=== PATIENT | female | born 1960 | race Caucasian/White ===

== ENCOUNTER → 2024-01-19 08:08 | Outpatient (REF) | payer BC, SELFPAY | LOC: WDC 08:08 | PROVIDERS: ATTENDING PHYSICIAN Obstetrics & Gynecology Gynecology; FAMILY PHYSICIAN Internal Medicine | DX: Z12.31 Encounter for screening mammogram for malignant neoplasm of breast (principal) | CPT/HCPCS: 77063; 77067 ==

== ENCOUNTER → 2024-01-26 08:42 | Outpatient (REF) | payer BC, SELFPAY | LOC: WDC 08:42 | PROVIDERS: ATTENDING PHYSICIAN Obstetrics & Gynecology Gynecology; FAMILY PHYSICIAN Internal Medicine | DX: R92.8 Other abnormal and inconclusive findings on diagnostic imaging of breast (principal) | CPT/HCPCS: 76642 ==

== ENCOUNTER → 2024-05-18 12:49 | Outpatient (REF) | payer BC, SELFPAY | LOC: RAD 12:49 | PROVIDERS: ATTENDING PHYSICIAN Obstetrics & Gynecology Gynecology; FAMILY PHYSICIAN Internal Medicine | DX: N95.0 Postmenopausal bleeding (principal) | CPT/HCPCS: 76830; 76856 ==

== ENCOUNTER → 2024-05-24 10:34 | Outpatient (REF) | payer BC, SELFPAY ==
[2024-05-24 12:54] LABS: ALT (SGPT) 24 U/L (0-35); AST (SGOT) 31 U/L (14-36); Albumin 4.8 g/dl (3.5-5.0); Alkaline Phosphatase 79 U/L (38-126); Blood Urea Nitrogen 15 mg/dl (7-17); Carbon Dioxide 26 mmol/L (22-30); Chloride 100 mmol/L (98-107); Glucose 84 mg/dl (70-99); Potassium 4.3 mmol/L (3.5-5.1); Sodium 138 mmol/L (135-145); Total Protein 7.6 g/dl (6.3-8.2); eGFR > 60.00
[2024-05-24 13:24] LABS: CA 125 28.8 U/mL (0-35)
== END ==
LOC: REG 10:34
PROVIDERS: ATTENDING PHYSICIAN Obstetrics & Gynecology Gynecology; FAMILY PHYSICIAN Internal Medicine
DX: N94.89 Other specified conditions associated with female genital organs and menstrual cycle (principal)
CPT/HCPCS: 36415; 80053; 86304

== ENCOUNTER → 2024-06-21 14:26 | Outpatient (REF) | payer BC, SELFPAY ==
[2024-06-21 16:10] LABS: Erythrocyte Sed Rate 20 mm/hour (0-20)
[2024-06-21 16:13] LABS: C-Reactive Protein < 5.00 mg/L (0.0-10.00)
[2024-06-21 16:29] LABS: Prolactin 8.7 ng/ml (3.0-18.6)
[2024-06-21 16:43] LABS: TSH 1.25 uIU/ml (0.47-4.68)
[2024-06-23 14:21] LABS: Rheumatoid Agglutinin Less Than 10 IU (<10 IU)
[2024-06-24 01:00] LABS: ANA, IgG Reflex to HEp-2 None Detected (None Detected)
== END ==
LOC: RAD 14:26
PROVIDERS: ATTENDING PHYSICIAN Internal Medicine
DX: M16.10 Unilateral primary osteoarthritis, unspecified hip (principal); L73.9 Follicular disorder, unspecified; R19.7 Diarrhea, unspecified
CPT/HCPCS: 36415; 73522; 84146; 84443; 85652; 86038; 86140; 86430

== ENCOUNTER → 2024-07-05 11:52 | Outpatient (REF) | payer BC, SELFPAY | LOC: MRI 3T 11:52 | PROVIDERS: ATTENDING PHYSICIAN Obstetrics & Gynecology Gynecology; FAMILY PHYSICIAN Internal Medicine | DX: N94.89 Other specified conditions associated with female genital organs and menstrual cycle (principal) | CPT/HCPCS: 72197; A9575 ==

== ENCOUNTER 2024-07-12 09:32 | Inpatient (IN) | payer BC, SELFPAY ==
[2024-07-10 12:24] VITALS: BP 150/84
[2024-07-10 13:44] VITALS: BMI 25.2
[2024-07-10 13:47] LABS: % Basophils 1.1 % (0-2); % Eosinophils 3.3 % (0-6); % Immature Granulocytes 0.3 % (0-0.5); % Lymphocytes 27.9 % (20.5-51.1); % Monocytes 8.8 % (1.7-9.3); % Neutrophils 58.6 % (42.2-75.2); Absolute Basophils 0.1 10^3/uL (0-0.2); Absolute Eosinophils 0.3 10^3/uL (0-0.7); Absolute Lymphocytes 2.2 10^3/uL (1.2-3.4); Absolute Monocytes 0.7 10^3/uL (0.1-0.6); Absolute Neutrophils 4.6 10^3/uL (1.4-6.5); Hematocrit 34.9 % (37.0-47.0); Hemoglobin 12.1 g/dL (12.0-16.0); Mean Corp Hgb Conc. 34.7 g/dL (33.0-37.0); Mean Corpuscular Hgb 30.6 pg (27.0-31.0); Mean Corpuscular Volume 88.4 fL (81.0-99.0); Mean Platelet Volume 8.8 fL (7.4-10.4); Nucleated Red Blood Cells % 0 %; Platelet Count 374 10^3/uL (130-400); Red Blood Cell Count 3.95 10^6/uL (4.20-5.40); Red Cell Dist. Width 12.5 % (11.5-14.5); White Blood Cell Count 7.9 10^3/uL (4.8-10.8)
[2024-07-10 13:59] LABS: ALT (SGPT) 19 U/L (0-35); AST (SGOT) 29 U/L (14-36); Albumin 4.3 g/dl (3.5-5.0); Alkaline Phosphatase 69 U/L (38-126); Blood Urea Nitrogen 13 mg/dl (7-17); Calcium 9.7 mg/dl (8.4-10.2); Carbon Dioxide 27 mmol/L (22-30); Chloride 104 mmol/L (98-107); Estimated Creatinine Clearance 77 ml/min; Glucose 86 mg/dl (70-99); LDH 163 U/L (120-246); Sodium 135 mmol/L (135-145); Total Bilirubin 0.7 mg/dl (0.2-1.3); Total Protein 6.7 g/dl (6.3-8.2); eGFR > 60.00
[2024-07-10 14:00] VITALS: BP 119/72
--- NOTE | 2024-07-10 14:30 | ED.GENMED ---
History of Present Illness
General
Chief Complaint: Abdominal Symptoms
Source: patient
Time Seen by Provider: 07/10/24 12:59
History of Present Illness
History of Present Illness:
64-year-old female with past medical history of migraines and anxiety presenting to the emergency department for evaluation of lower abdominal distention and a fullness sensation describing no pain but states it feels as if she is . Patient
had an MRI done last week which showed a significant mass on her left ovary concerning for neoplasm. Patient has a appointment scheduled with Dr. Mk Mar in 8 days for further evaluation but due to a change in her symptoms contacted him today
and it was recommended she come to the ER for further evaluation. Patient notes that over the last few months she has been experiencing some skin changes, increased hair growth, blotchiness on her skin and fullness sensation to the breast and
nipples. She had an ultrasound done about 8 weeks ago which showed the suspected mass, had a uterine biopsy which was negative and then the ultrasound done which showed concerning findings. Patient denies any urinary symptoms, bowel changes,
change in oral intake or any other concerns presently.
Past History
Past History
ED Past Medical History: Other (Endometriosis) and Other (migraines)
ED Past Surgical History: Appendectomy and Gynecological (Laparoscopic left oophorectomy)
Social History
Tobacco: Non-smoker
Alcohol: None
Drug: None
Personal:
Living: with family
Review of Systems
Review of Systems
All Other Systems: ROS reviewed and negative except as documented in HPI and ROS
Phy Exam
Physical Exam
Physical Exam:
GENERAL: Alert , in no apparent distress
EYE: clear conjunctiva b/l
HEAD: NCAT
ENT: mmm.
CARDIAC: Regular rate and rhythm .
LUNGS: Clear breath sounds bilaterally, no acute respiratory distress, no wheezes/rales/rhonchi
ABDOMEN: Soft, distended with some mild tenderness in the left lower part of the abdomen, no r/g, no cvat, no large volume ascites or fluid wave
NEUROLOGICAL: Alert and oriented
SKIN: Warm and dry, skin intact.
MUSCULOSKELETAL: well perfused.
PSYCH: Normal and appropriate interaction.
Scores
Heart Failure Risk
Heart Failure Risk Score: Not Applicable
Heart Score for Chest Pain Patients
STEMI patient?: Not applicable
Withdrawal Assessment of Alcohol
Withdrawal Assessment Completed?: Not applicable
Course
Orders/Labs/Results
Orders:
Orders
07/10/24 Lunch
Regular
At Your Request: Full Participation
07/10/24 13:30
CT Chest/abd/pel W Iv Cont Urgent
Reason For Exam: large ovarian mass, worsening pain
07/10/24 13:36
CA 125 Urgent
CEA Urgent
Comment: ADD ON
Complete Blood Count/With Diff Urgent
Comprehensive Metabolic Panel Urgent
Lactate Dehydrogenase [LDH] Urgent
07/10/24 13:47
Add On- LAB Urgent
Tests Added?: CEA
07/10/24 16:06
TERMITE CONTROL TECHNICIAN Oncology Consult Routine
Consulting Provider: Mk Mar
Was physician already notified: Yes
Reason for consult: ovarian tumor
07/10/24 17:07
Tramadol HCl [Ultram] 50 mg PO Q6HPRN PRN
07/10/24 17:10
Ketorolac [Toradol] 15 mg IV Q6HPRN PRN
Morphine Sulfate 2 mg IV Q6HPRN PRN
07/10/24 17:13
Admit/Transfer Patient As Directed
Co-Sign Provider:
Level of Care: Observation services
Assign to:: Medical/Surgical
Physician / Group: Kevon Rain
Diagnosis: Abd discomfort/pain possibly d/t malignancy vs constipation
PRN Pain Medication Management As Directed
May give lesser potent ordered pain med per pt: Yes
preference::
Protocol:: Medication orders for pain may be administered in a
manner that supports deferring to patient preference
when the pt is:
- Requesting an ordered lesser potent pain medication.
Least to most potent pain medications are defined
as: acetaminophen < NSAID < tramadol < opioids
(morphine, oxycodone, hydromorphone).
- Requesting a lesser dose of the same medication IF
ORDERED.
- Requesting a less intrusive route of administration
if both routes are prescribed by the provider (PO <
IV).
07/10/24 17:15
Code Status As Directed
Resuscitation Status: Full Code
07/10/24 17:19
Tramadol HCl [Ultram] 50 mg PO Q6HPRN PRN
07/10/24 18:00
Pantoprazole [Protonix] 40 mg PO DAILY
07/10/24 19:52
Acetaminophen [Tylenol] 650 mg PO Q4HPRN PRN
Bisacodyl [Dulcolax] 10 mg RECTAL [id number] PRN
Polyethylene Glycol Powder [Miralax] 17 grams PO DAILYPRN PRN
07/10/24 19:52
Activity As Directed
Activity Level: With Assistance
Pneumatic Compression Sleeves As Directed
Type: Knee high
Vital Signs As Directed
Frequency: Per unit guidelines
DX Deep Vein Thrombosis Video Routine
07/10/24 20:00
Docusate W/Senna [Senokot-S] 1 tablet PO BID
07/10/24 22:00
Aspirin Low Dose EC [Aspir Low (Enteric Coated)] 81 mg PO HS
07/11/24 05:56
Basic Metabolic Panel IN AM
Complete Blood Count/No Diff IN AM
Magnesium IN AM
07/11/24 08:00
Calcium Carbonate/Vitamin D3 [Oscal 500 + D] 500 mg PO DAILY
Paroxetine [Paxil] 20 mg PO DAILY
Rosuvastatin Calcium [Crestor] 10 mg PO DAILY
07/12/24 06:00
Basic Metabolic Panel IN AM
Complete Blood Count/No Diff IN AM
Magnesium IN AM
07/13/24 06:00
Basic Metabolic Panel IN AM
Complete Blood Count/No Diff IN AM
Magnesium IN AM
07/14/24 06:00
Basic Metabolic Panel IN AM
Complete Blood Count/No Diff IN AM
Magnesium IN AM
07/15/24 06:00
Basic Metabolic Panel IN AM
Complete Blood Count/No Diff IN AM
Magnesium IN AM
07/16/24 06:00
Basic Metabolic Panel IN AM
Complete Blood Count/No Diff IN AM
Magnesium IN AM
07/17/24 06:00
Basic Metabolic Panel IN AM
Complete Blood Count/No Diff IN AM
Magnesium IN AM
Abnormal Lab Results
07/10/24
13:36
RBC 3.95 L 10^6/uL
(4.20-5.40)
Hct 34.9 L %
(37.0-47.0)
Absolute Monos (auto) 0.7 H 10^3/uL
(0.1-0.6)
07/10/24 13:36
07/10/24 13:36
Vital Signs
Initial and Last Documented VS:
Initial Vital Signs
Temp Pulse Resp BP Pulse Ox
97.5 F 81 18 150/84 100
07/10/24 12:24 07/10/24 12:24 07/10/24 12:24 07/10/24 12:24 07/10/24 12:24
Last Documented Vital Signs
Temp Pulse Resp BP Pulse Ox
98 F 71 16 123/76 98
07/10/24 22:51 07/10/24 22:51 07/10/24 22:51 07/10/24 22:51 07/10/24 22:51
MDM/Problems Addressed
Differential Diagnosis Includes:
Ovarian malignancy, ascites, torsion
MDM/Problems Addressed:
64-year-old female presenting to the emergency department for evaluation of worsening abdominal distention and fullness after she had an MRI done a few days ago which had concerning findings for large left ovarian mass/malignancy. Patient stating
she is not in much pain but describes sensation of feeling with worsening abdominal distention. She contacted her TERMITE CONTROL TECHNICIAN oncologist who recommended patient come to the ER for further evaluation. I reviewed patient's MRI report. Will check
labs as well as tumor markers including CEA and CA125. Will contact patient's TERMITE CONTROL TECHNICIAN oncologist, Dr. Mar to help with disposition planning.
*Radiology
Radiology exam reviewed: radiology read reviewed
*Pulse Oximetry
Patient hypoxic: no
*Critical Care Note
Total Time (30-74mins, 75-104mins- exclusive of procedures): Not Applicable
Data Reviewed
Review of Other/Old Records Reveals: Records and Radiology Studies
Source: patient and records
Patient Management
Discussion with other providers: Body Art Technician
Escalation/DeEscalation of care consider admission/obs:
Dr. Mar requesting CT chest/abd/pelvis be performed. Anticipate admission pending further tests
ED Attending Note
-
Portions of this chart may have been created with voice recognition software.� Occasional wrong word or��sound alike� substitutions may have occurred due to the inherent limitations of voice recognition software.
Discharge Plan
Departure
Patient Disposition: Admit
Date of Disposition: 07/10/24
Time of Disposition: 15:12
Presentation/result/management discussed w/ accepting MD/DO: Hospitalist
Discharge Problem:
Ovarian mass, left
Interventions
Interventions:
*Risk Screen - Suicide Last Done: 07/10/24 12:24
*General Assessment Last Done: 07/10/24 12:24
*Neglect/Abuse Screening Last Done: 07/10/24 12:24
ED- Fall Risk Assessment Last Done: 07/10/24 13:44
*ED COVID-19 Vaccine History Last Done: 07/10/24 13:44
*Nursing Disposition Last Done: 07/10/24 20:43
PS-Nwfjaz-Nqqlyrxpqr Assessment Last Done: 07/10/24 13:44
Discharge Date and Time
Discharge Date/Time: 07/10/24 20:43
--- NOTE | 2024-07-10 15:29 | HPS.HSE ---
Family Physician
-
Family Physician: Kelvin Pascual
Chief Complaint
-
Abdomen pain
History of Present Illness
64 female history of tension headaches due to neck pain anxiety presents for evaluation abdomen pain acute worsening last 24 hours. Patient was recently found to have a left ovarian mass on MRI. Discussed worsening of abdominal discomfort
distention with her physical meteorologist who recommended patient seek further evaluation treatment in ED. Vital signs stable labs unremarkable CT abdomen pelvis noted known left ovarian mass, otherwise no acute inflammatory process, stable trace pelvic
ascites, no focal collection/abscess. Constipation with mild to moderate colonic fecal burden was noted, patient does endorse a history of constipation for years but notes that her bowel movements recently have been regular. Denies nausea vomiting
diarrhea fevers chills shortness of breath. Endorses left hip pain planned for outpatient hip replacement.
Medical History
Past Medical History
Past Medical History: Reports Other (as above)
Past Surgical History: Reports Other (as above)
Social History
Tobacco: Non-smoker
Alcohol: None
Drug: None
Personal:
Living: With Family
Family History
Family History: Not pertinent (reviewed)
Allergies / Home Medications
Allergies reflects when Allergies were last updated in [facility].
Home Medications with original date entered in [facility]
Allergy/Medication List:
Allergies
Allergy/AdvReac Type Severity Reaction Status Date / Time
levofloxacin [From Levaquin] Allergy chest and Verified 06/07/19 10:08
leg pain
Penicillins Allergy fever and Verified 06/07/19 10:08
rash
codeine AdvReac nasuea Verified 06/07/19 10:08
Home Medications
kpywccgk-ehh-kwbnt acid 0.4 mg-lycopene 300 mcg-lutein 250 mcg tablet (Centrum Silver) 1 ea PO DAILY 01/05/18
paroxetine HCl 20 mg tablet (Paxil) 20 mg PO DAILY 01/05/18
calcium carbonate 600 mg-vitamin D3 20 mcg (800 unit) chewable tablet (Caltrate 600 plus D) 1 ea PO DAILY 06/07/19
aspirin 81 mg tablet,delayed release 81 mg PO HS 07/10/24
naproxen sodium 220 mg tablet (Aleve) 440 mg PO BIDPRN PRN mild pain 07/10/24
rosuvastatin 10 mg tablet 10 mg PO DAILY 07/10/24
Review of Systems
-
A 12 point ROS was completed and negative except as noted: Yes
Constitutional: Reports Sleep Disturbance (as below)
Physical Exam
Vital Signs
Vital Signs
Temp Pulse Resp BP Pulse Ox
97.5 F 81 18 119/72 95
07/10/24 12:24 07/10/24 12:24 07/10/24 12:24 07/10/24 14:00 07/10/24 14:01
Physical Exam
General: Other (as below)
Laboratory Results
-
07/10/24 13:36
07/10/24 13:36
Laboratory Results
Total Bilirubin 0.7 mg/dl (0.2-1.3) 07/10/24 13:36
AST 29 U/L (14-36) 07/10/24 13:36
ALT 19 U/L (0-35) 07/10/24 13:36
Alkaline Phosphatase 69 U/L (38-126) 07/10/24 13:36
Impression/Plan
-
ROS
General: Denies fever chills night sweats unexpected weight loss
Neuro: Denies seizure shaking loss of consciousness dizziness vertigo
Psych: denies depression hallucinations confusion manic episodes
Endocrine: Denies polyuria polydipsia polyphagia heat/cold intolerance
HEENT: Denies blindness visual disturbances epistaxis
Pulmonary: denies coughing hemoptysis sneezing sob dyspnea on exertion
Cardiovascular: denies chest pain palpitations leg swelling
Hematology: denies signs symptoms of anemia easy bruising/bleeding
Gastrointestinal: Reports abdomen discomfort distention denies nausea vomiting diarrhea constipation hematemesis hematochezia melena
Genito-Urinary: denies retention incontinence dysuria
Musculoskeletal: denies joint pain weakness
Dermatology: denies rash laceration bruising
Physical Exam
General: No pallor, cyanosis, or jaundice.
HEENT: Throat clear. PERRLA Normocephalic atraumatic
NECK: Supple. No JVD Carotid Bruits
RESPIRATORY: Lungs clear to auscultation. No crackles wheezes stridor
CVS: S1, S2 normal. RRR. No murmur, rub or gallop.
ABDOMEN: Soft, distended mild tenderness. Bowel sound present
EXTREMITIES: No peripheral cyanosis or edema.
SHEET METAL WORKER: AOx3. No focal deficits.
IMPRESSION:
64 female history of tension headaches due to neck pain anxiety presents for evaluation abdomen pain acute worsening last 24 hours. Patient was recently found to have a left ovarian mass on MRI. Discussed worsening of abdominal discomfort
distention with her physical meteorologist who recommended patient seek further evaluation treatment in ED. Vital signs stable labs unremarkable CT abdomen pelvis noted known left ovarian mass, otherwise no acute inflammatory process, stable trace pelvic
ascites, no focal collection/abscess. Constipation with mild to moderate colonic fecal burden was noted, patient does endorse a history of constipation for years but notes that her bowel movements recently have been regular. Denies nausea vomiting
diarrhea fevers chills shortness of breath. Endorses left hip pain planned for outpatient hip replacement.
PLAN:
#Abdominal discomfort pain unclear etiology
#Left ovarian mass
#Discomfort possibly due to constipation, regular bowel movements may be due to overflow incontinence
Observation
Regulated Program Manager consult
Pain control tramadol moderate-severe pain, morphine for severe breakthrough pain
Colace senna hold for diarrhea
#Anxiety
Continue home paroxetine
DVT prophylaxis SCDs
GI prophylaxis Protonix
Meds reconciled and resume as appropriate
Full code
I spent a total of 75 minutes with the patient or on the floor. More than 50% of this time involved counseling and coordination of care.
[2024-07-10 15:48] LABS: CEA 0.64 ng/ml
[2024-07-10] MEDS: ULTRAM 50 MG PO (17:27)
--- NOTE | 2024-07-10 19:55 | PTCARENOTE ---
Received pt from ED via stretcher. Pt ambulated to bed independently. AAOx3. Pt complained of moderate to severe pain in LL abd, see MAR. Assessed and oriented to room. Pt verbalized understanding of call bates. Call bates within close reach. Will
continue to monitor.
[2024-07-10 20:01] VITALS: BP 132/71; BMI 26.0
[2024-07-10] MEDS: MIRALAX 17 GRAMS PO (21:41)
[2024-07-10] MEDS: ASPIR LOW (ENTERIC COATED) 81 MG PO (21:42)
[2024-07-10] MEDS: PROTONIX 40 MG PO (21:42)
[2024-07-10] MEDS: SENOKOT-S 1 TABLET PO (21:42)
[2024-07-10] MEDS: MORPHINE SULFATE 2 MG IV (22:02)
[2024-07-10 22:51] VITALS: BP 123/76
[2024-07-11] MEDS: ULTRAM 50 MG PO (06:31)
[2024-07-11 06:44] LABS: Hematocrit 36.8 % (37.0-47.0); Hemoglobin 12.4 g/dL (12.0-16.0); Mean Corp Hgb Conc. 33.7 g/dL (33.0-37.0); Mean Corpuscular Hgb 30.9 pg (27.0-31.0); Mean Corpuscular Volume 91.8 fL (81.0-99.0); Mean Platelet Volume 9.1 fL (7.4-10.4); Platelet Count 360 10^3/uL (130-400); Red Blood Cell Count 4.01 10^6/uL (4.20-5.40); Red Cell Dist. Width 12.4 % (11.5-14.5); White Blood Cell Count 7.3 10^3/uL (4.8-10.8)
[2024-07-11 07:38] LABS: Blood Urea Nitrogen 13 mg/dl (7-17); Calcium 8.9 mg/dl (8.4-10.2); Carbon Dioxide 26 mmol/L (22-30); Chloride 104 mmol/L (98-107); Estimated Creatinine Clearance 65 ml/min; Glucose 88 mg/dl (70-99); Magnesium 2.3 mg/dl (1.6-2.3); Potassium 4.2 mmol/L (3.5-5.1); Sodium 137 mmol/L (135-145); eGFR > 60.00
[2024-07-11 07:56] VITALS: BP 114/71
--- NOTE | 2024-07-11 08:38 | CON.ONC ---
Impression
Impression
Acute abdominal pain
Acute on chronic constipation
Left ovarian mass concerning for neoplasm
Replacement of left ovary with large complex solid/cystic pelvic mass measuring 10cm x9cm x9cm
Endometrioma
Trace pelvic ascites
Osteoarthritis of left hip
Plan
Plan
Metalizer Field Operation consult
Await recommendations regarding biopsy/plan of care
Pain management
CA 125 pending
Bowel regimen
Supportive care
Patient History
History of Present Illness
Mala Lee is a 64 year old female who presented to the ER 07/10 with complaints of lower abdominal distention with sensation of fullness. She denies pain but stated she 'feels '. She had an MRI performed outpatient which showed a large
left ovarian mass concerning for neoplasm. She has an appointment for consultation with Dr. Mk Mar on 07/18/24. She contacted Dr. Mar with her acute symptoms and it was recommended that she proceed with ER evaluation. Outpatient uterine
biopsy was negative. Other reported symptoms include: skin changes described as 'blotchy' with increased hair growth and a sensation of fullness to breasts/nipples. She denies weight loss or appetite changes. She admits to chronic constipation. She
is up to date on mammogram as of 01/26/24 which was benign.
Past-Medical/Surgical History
Tension headaches/migraines
Anxiety
Osteoarthritis of Left hip
Patient Medication
�Medication �Instructions �Recorded �Confirmed �Last Taken �Type
pdlanuba-yyu-lajlr acid 0.4 1 ea PO DAILY 01/05/18 07/10/24 Unknown History
mg-lycopene 300 mcg-lutein 250 mcg
tablet (Centrum Silver)
paroxetine HCl 20 mg tablet (Paxil) 20 mg PO DAILY 01/05/18 07/10/24 07/10/24 History
calcium carbonate 600 mg-vitamin 1 ea PO DAILY 06/07/19 07/10/24 Unknown History
D3 20 mcg (800 unit) chewable
tablet (Caltrate 600 plus D)
aspirin 81 mg tablet,delayed 81 mg PO HS 07/10/24 07/10/24 Unknown History
release
naproxen sodium 220 mg tablet 440 mg PO BIDPRN PRN mild pain 07/10/24 07/10/24 07/09/24 History
(Aleve)
rosuvastatin 10 mg tablet 10 mg PO DAILY 07/10/24 07/10/24 07/10/24 History
Active Medications
Generic Name Dose Route Start Last Admin
Trade Name Freq PRN Reason Stop Dose Admin
Acetaminophen 650 mg 07/10/24 19:52
Acetaminophen 325 Mg Tablet PO 08/07/24 19:51
Q4HPRN PRN
mild pain/PAVON/temp> 100.4F
Aspirin 81 mg 07/10/24 22:00 07/10/24 21:42
Aspirin 81 Mg (Enteric Coated) Tablet PO 08/07/24 21:59 81 mg
HS MARJ Administration
Bisacodyl 10 mg 07/10/24 19:52
Bisacodyl 10 Mg Rectal Suppository RECTAL 08/07/24 19:51
[id number] PRN
constipation
Calcium/Vitamin D 500 mg 07/11/24 08:00
Calcium Carbonate 500 Mg/Vitamin D 5 Mcg (200 Units) Tablet PO 08/08/24 07:59
DAILY MARJ
Morphine Sulfate 2 mg 07/10/24 17:10 07/10/24 22:02
Morphine 2 Mg/Ml Syringe IV 07/24/24 17:09 2 mg
Q6HPRN PRN Administration
severe breakthrough pain
Pantoprazole Sodium 40 mg 07/10/24 18:00 07/10/24 21:42
Pantoprazole 40 Mg Delayed Release Tablet PO 08/07/24 17:59 40 mg
DAILY MARJ Administration
Paroxetine HCl 20 mg 07/11/24 08:00
Paroxetine 20 Mg Tablet PO 08/08/24 07:59
DAILY MARJ
Polyethylene Glycol 17 grams 07/10/24 19:52 07/10/24 21:41
Polyethylene Glycol Powder 17 Grams Packet PO 08/07/24 19:51 17 grams
DAILYPRN PRN Administration
constipation
Rosuvastatin Calcium 10 mg 07/11/24 08:00
Rosuvastatin (Crestor) 10 Mg Tablet PO 08/08/24 07:59
DAILY MARJ
Senna/Docusate Sodium 1 tablet 07/10/24 20:00 07/10/24 21:42
Docusate W/Senna (Kasey-Colace) Tablet PO 08/07/24 19:59 1 tablet
BID MARJ Administration
Tramadol HCl 50 mg 07/10/24 17:19 07/11/24 06:31
Tramadol Hcl 50 Mg Tablet PO 08/07/24 17:18 50 mg
Q6HPRN PRN Administration
moderate severe pain
Physical Exam
Labs
Lab Results
WBC 7.3 10^3/uL (4.8-10.8) 07/11/24 05:56
RBC 4.01 10^6/uL (4.20-5.40) L 07/11/24 05:56
Hgb 12.4 g/dL (12.0-16.0) 07/11/24 05:56
Hct 36.8 % (37.0-47.0) L 07/11/24 05:56
MCV 91.8 fL (81.0-99.0) 07/11/24 05:56
MCH 30.9 pg (27.0-31.0) 07/11/24 05:56
MCHC 33.7 g/dL (33.0-37.0) 07/11/24 05:56
RDW 12.4 % (11.5-14.5) 07/11/24 05:56
Plt Count 360 10^3/uL (130-400) 07/11/24 05:56
MPV 9.1 fL (7.4-10.4) 07/11/24 05:56
Abs Immat Gran (auto) 0.0 10^3/uL (0-0.05) 07/10/24 13:36
Absolute Neuts (auto) 4.6 10^3/uL (1.4-6.5) 07/10/24 13:36
Absolute Lymphs (auto) 2.2 10^3/uL (1.2-3.4) 07/10/24 13:36
Absolute Monos (auto) 0.7 10^3/uL (0.1-0.6) H 07/10/24 13:36
Absolute Eos (auto) 0.3 10^3/uL (0-0.7) 07/10/24 13:36
Absolute Basos (auto) 0.1 10^3/uL (0-0.2) 07/10/24 13:36
Immature Gran % 0.3 % (0-0.5) 07/10/24 13:36
Neutrophils % 58.6 % (42.2-75.2) 07/10/24 13:36
Lymphocytes % 27.9 % (20.5-51.1) 07/10/24 13:36
Monocytes % 8.8 % (1.7-9.3) 07/10/24 13:36
Eosinophils % 3.3 % (0-6) 07/10/24 13:36
Basophils % 1.1 % (0-2) 07/10/24 13:36
Creatinine 0.7 mg/dL (0.6-1.0) 07/11/24 05:56
Vital Signs
Vital Signs
Temp Pulse Resp BP Pulse Ox
98.2 F 71 17 114/71 97
07/11/24 07:56 07/11/24 07:56 07/11/24 07:56 07/11/24 07:56 07/11/24 07:56
07/05/24 Pelvis MRI: Replacement of the left ovary with a large complex heterogeneously enhancing mass as described, highly suspicious for malignant cystic neoplasm such as serous or mucinous cystadenocarcinoma. There appears to be a small internal
component of an endometrioma, suggesting possibility of endometrioid carcinoma of the ovary as well.Mild endometrial thickening with mild fluid distention. Findings may reflect endometrial hyperplasia.
07/10/24 CT c/a/p: No acute inflammatory process within the abdomen or pelvis. No significant change in a large complex solid/cystic pelvic mass, previously described to be related to left ovary on MRI examination performed 5 days previous.Stable
trace pelvic ascites. No upper abdominal ascites or focal collection/abscess.Constipation with mild to moderate colonic fecal burden. No grossly distended bowel loops.No obstructive uropathy.
[2024-07-11] MEDS: OSCAL 500 + D 500 MG PO (08:50)
[2024-07-11] MEDS: CRESTOR 10 MG PO (08:50)
[2024-07-11] MEDS: SENOKOT-S 1 TABLET PO ×2 (08:51→21:34)
[2024-07-11] MEDS: PROTONIX 40 MG PO (08:51)
[2024-07-11] MEDS: PAXIL 20 MG PO (08:51)
--- NOTE | 2024-07-11 08:56 | W.PN.HOSP.TC ---
Addendum entered and electronically signed by Joce Bloom MD 07/12/24 07:52:
EKG reviewed and it is NSR and unremarkable. Ok to proceed to surgery.
Addendum entered and electronically signed by Joce Bloom MD 07/11/24 14:43:
Patient has no contraindication for surgery therefore is okay to proceed. She has mild perioperative risk of complications. She does not have any acute [place], decompensated heart failure, severe valvulopathy, severe symptomatic arrhythmias. Will
obtain a twelve-lead EKG for completeness preop.
Original Note:
Today's Communication/Plan
-
Plan for ENTERTAINMENT AGENT surgery tomorrow.
Assessment / Plan
Assessment / Plan
Physical exam:
General: Acutely ill. Nontoxic
HEENT: Normocephalic, Atraumatic and Moist Mucous Membranes
Respiratory: Clear to Auscultation; Negative Wheezes, Rales or Rhonchi
Cardiac: Regular Rhythm and S1/S2
GI: Soft, Tender and Nondistended
Musculoskeletal: No Clubbing, No Cyanosis and No Edema
Neuro: Awake, Alert and Oriented, no neuro-deficits
Psych: Calm
A/P:
Abdominal pain likely related to complex left pelvic mass, suspicion for ovarian malignancy:
Continue pain control
Appreciated ENTERTAINMENT AGENT oncology eval
CA-125 pending
CEA antigen 0.64
Plan for robotic assisted laparoscopic hysterectomy with LSO tomorrow
Discussed with at bedside
Constipation:
Continue bowel regimen
Depression and anxiety
Continue home paroxetine
Hyperlipidemia:
Continue statins, rosuvastatin 10 mg p.o. daily
DVT prophylaxis:
SCDs
CODE STATUS:
Full code
Anticipated Discharge: 24 - 48 hours
Subjective/Interval History
-
Date of Service: July 11, 2024
Patient still have abdominal pain on and off. Tramadol did not help much. Morphine helped more. Had bowel movement yesterday. Afebrile
Objective Data
-
Labs:
Laboratory Results
07/11/24
05:56
WBC 7.3
Hgb 12.4
Hct 36.8 L
Plt Count 360
Sodium 137
Potassium 4.2
Chloride 104
Carbon Dioxide 26
BUN 13
Creatinine 0.7
Glucose 88
Calcium 8.9
Vital Signs:
Vital Signs
Temp Pulse Resp BP Pulse Ox
98.2 F 71 17 114/71 97
07/11/24 07:56 07/11/24 07:56 07/11/24 07:56 07/11/24 07:56 07/11/24 07:56
I&O
07/10/24 07/11/24 07/12/24
06:59 06:59 06:59
Intake Total 480 / 480
Balance 480 / 480
[2024-07-11] MEDS: MORPHINE SULFATE 2 MG IV ×3 (10:41→23:08)
--- NOTE | 2024-07-11 12:48 | W.PN.GYNONC ---
Today's Communication
-
surgery scheduled for tomorrow 07/12
Impression / Plan
-
complex left pelvic mass-10x8x8 cm suspicious for cystic neoplasm of the left ovary- case discussed with Dr Mar
Plan - discussed results with patient and discussed need for surgical removal of mass and hysterectomy to determine pathology of the mass. Explained a robotic assisted total laparoscopic hysterectomy with LSO and possible staging with omentectomy
risks discussed and questions answered Dr Mar also to see patient and discuss surgery Will plan surgery for 07/12.
Subjective / Interval History
-
64 yr old white female admitted yesterday for abdominal pain and bloating. The pain started on 07/07 and was off and on and controlled with Aleve Yesterday the pain increased and associated with bloating that she could feel up and under her ribs.
She states that bloating is not as bad but is still having the pain but was controlled with the Morphine she was given last night. Prior to her admission she was being worked up for vaginal bleeding that started in March of 2024 and during that work
up a left ovarian mass was found. Ultrasound showed the mass as 5 to 6 cm and MRI from last week shows mass to be [address] scan confirms ovarian mass. She also had an endometrial bx that shows proliferative endometrium.
PMH
infertility and endometriosis
left hip osteoarthritis
past surgical hx-
2004-robotic RSO for endometrioma
2018- appy
Objective Data
-
Lab Results:
07/11/24 05:56
07/11/24 05:56
Physical Exam
Vital Signs / I&O
Vitals
Temp Pulse Resp BP Pulse Ox
98.2 F 71 17 114/71 97
07/11/24 07:56 07/11/24 07:56 07/11/24 07:56 07/11/24 07:56 07/11/24 07:56
I&O
07/09/24 07/10/24 07/11/24 08/13/24
06:59 06:59 06:59 06:59
Intake Total 480 / 480
Balance 480 / 480
Physical Exam
VSS
afebrile
abdominal- soft, LLQ tenderness fullness to 2 cm below the umbilicus negative rebound tenderness
General: Comfortable
Cardiac: Regular Rhythm
Musculoskeletal: No Edema
Neuro: AO x 3
Data Reviewed
-
CT Scan: Discussed with Physician
MRI: Discussed with Physician
[2024-07-11 15:13] VITALS: BP 113/70
--- NOTE | 2024-07-11 15:48 | W.CON.GYNONC ---
Consultation
-
Date/Time Consultation Requested: 07/11/2024
Date/Time Consultation Performed: 07/11/2024
Performing Provider: Mk Mar
Reason for Consultation: Pelvic mass
Chief Complaint
-
abdominal pain/bloating
History of Present Illness
64 G0 white female menopausal for 13 years presents for evaluation abdomen pain acute worsening last 24 hours. patient reports she experienced vaginal bleeding back in 2023 and reported this to her. At the same time she has had 6 months of
increased hair growth, acne like changes on her face, and also increased libido. Specifically she mentions there are blemishes on her scalp first noticed in November, subsequently fibrolamellar whole face. She also reports unexpected weight gain in
the first 6 months of the year, she has had hair growth twice is normally superficial, there are rare growth as well as hair on her breasts and her on her breasts.Dr Cordoba saw her and pap done was normal. she came back for endometrial biopsy
which showed proliferative endometrium (abnormal for this age group) . US pelvis done showed Uterus: 7.6 x 4.5 x 6.4 cm. Endometrium: Endometrium measures 8.6 mm, containing multiple small cystic structures. Right ovary: Surgically absent. Left
ovary: There is a large structure in the left adnexa measuring 6.9 x 6.7 x 8.6 cm, adjacent to and contiguous with the uterine margin. Presumably an enlarged left ovary. There are a few follicles/cystic structures measuring up to 1.8 cm. There is
also a dominant lesion measuring 5.9 x 5.7 x 5.3 cm with homogeneous low-level internal echoes, suspicious for endometrioma. She was asked to do a MRI which took a while to schedule, eventually done last week UTERUS:
Orientation: Retroverted. Masses: None. Endometrium: 6 mm. Mildly distended with fluid. Junctional zone: Unremarkable. Cervix: There are incidental nabothian cysts present. RIGHT OVARY: Surgically absent. LEFT OVARY: Replaced by a large
heterogeneous mass measuring approximately 10.1 x 8.1 x 8.6 cm. The mass contains a large simple cystic component along the right aspect, whereas the left aspect of the mass is characterized by markedly heterogeneous and enhancing soft tissue
component measuring up to 6.4 x 5.7 x 2.1 cm. Along the left lateral aspect of this heterogeneous area there is a nonenhancing component which demonstrates T1 hyperintense signal with T2 shading, measuring up to 2.1 cm.
She called me through answering service yesterday and Discussed worsening of abdominal discomfort distention and I recommended patient seek further evaluation treatment in ED.
She saw me back in 2005 for abnormal bleeding but chose to have surveillance with no intervention.
in ER CT CAP done shows:
CHEST:
No pulmonary mass. No evidence of pneumonia.No pleural effusion. No pneumothorax.No hilar or mediastinal mass or adenopathy.
ABDOMEN:
Liver, spleen, pancreas, gallbladder, adrenal glands, and kidneys are unremarkable.No dilated bowel loops or evidence of bowel obstruction. Mild to moderate colonic fecal burden. Prior appendectomy.No upper abdominal ascites or free air. No
peritoneal or omental mass or soft tissue thickening. No acute inflammatory process.The aorta and retroperitoneum are unremarkable. No adenopathy.
PELVIS:
Large complex solid/cystic pelvic mass measuring 10 cm transverse by 9 cm AP by 9 cm craniocaudal. No significant interval change.Stable trace ascites. No acute inflammatory soft tissue stranding.
Musculoskeletal review:
Advanced left hip arthritis. Thoracolumbar scoliosis. Multilevel discogenic and facet degenerative changes. No compression deformity.
Medical History
Past Medical History
Past Surgical History: Reports Appendectomy
Additional Past Surgical History:
Right OOphoprectomy, endometriosis 2003
Social History
Tobacco: Non-smoker
Alcohol: Occasional
Drug: None
Personal:
Living: With Family
Employment: Retired
Family History
Family History: Reviewed & Not Pertinent
Allergies
Allergies reflect when allergies were last updated in [facility].
levofloxacin [From Levaquin] Allergy (Verified 06/07/19 10:08)
chest and leg pain
Penicillins Allergy (Verified 06/07/19 10:08)
fever and rash
codeine Adverse Reaction (Verified 06/07/19 10:08)
nasuea
Review of Systems
-
A 12 point Review of Systems was completed except as noted: Yes
Abdomen/GI: Reports Abdominal Pain
: Reports No Symptoms
Musculoskeletal: Reports Joint Pain
Endocrine: Reports Other
Hematologic/Lymphatic: Reports No Symptoms
Psych: Reports No Symptoms
Physical Exam
Vital Signs / I&O
Vitals
Temp Pulse Resp BP Pulse Ox
97.6 F 69 17 113/70 99
07/11/24 15:13 07/11/24 15:13 07/11/24 15:13 07/11/24 15:13 07/11/24 15:13
I&O
07/09/24 07/10/24 07/11/24 07/12/24
06:59 06:59 06:59 06:59
Intake Total 480 / 480
Balance 480 / 480
Physical Exam
General: Well Developed, Well Nourished and No Apparent Distress
HEENT: Normocephalic
Respiratory: Clear
Cardiac: S1/S2 and Regular Rhythm
GI: Soft, Non Tender, Non Distended and Normal Bowel Sounds
Genito-urinary: No Costovertebral Tend
External Genitalia: Normal Urethra
Vagina: Normal Mucosa
Cervix: Normal
Uterus: Normal
Adnexa: Abnormal (mass mobile, left of midline)
Rectal: Normal Mucosa
Musculoskeletal: No Clubbing, No Cyanosis and No Edema
Skin: Warm
Neuro: Awake, Alert, Oriented and AO x 3
Hematologic/Lymphatic: No Lymphadenopathy
Psych: Calm and Intact Judgement
Results
-
07/11/24 05:56
07/11/24 05:56
Data Reviewed
-
Diagnostic Radiology: Image personally visualized and interpreted
CT Scan: Image personally visualized and interpreted
Ultrasound: Image personally visualized and interpreted
MRI: Image personally visualized and interpreted
Medical Tests (Nuc Med, Echo, EKG etc): Image personally visualized and interpreted
Lab Data: Labs Reviewed, Discussed with Physician (Dr Jones, and Dr Joce Bloom) and Discussed with Nurse
Old Records: Reviewed
Impression / Plan
-
complex left pelvic mass-10x8x8 cm suspicious for cystic neoplasm of the left ovary- current symptoms appear to indicate she has abnormal uterine bleeding with endometrium which is proliferative likely secondary to hormonal stimulation. Many of
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
cell. Based on my review of the CT she does not have any other obvious retroperitoneal adenopathy upper abdominal disease ascites or pleural effusion. Because of the duration of symptoms as well as symptoms of abdominal pain I am recommending
surgery for definitive management. I recommend robotic assisted exploration of the abdomen with plan to perform total laparoscopic hysterectomy, left salpingo-oophorectomy, I suspect the right tube and ovary has already been removed. Surgical
history. She may need a mini laparotomy for extraction of specimen if the specimen is unable to be delivered through the vagina. Frozen section will be obtained and additional staging will be done depending on the histology to include but not
limited to pelvic and para-aortic lymph node dissection multiple peritoneal biopsies, omentectomy. The patient understands that the purpose of these biopsies, complete and perform comprehensive surgical staging. Risk of surgery including infection
bleeding injury to adjacent organs DVT pulmonary embolism and cardiovascular complications were discussed and reviewed.
I will request hospitalist team to provide medical clearance for the patient and performed ECG.
Patient will have blood work including total and free testosterone as well as inhibin B as tumor markers for sex cord stromal tumors. Additional tumor markers for epithelial tumors have already been drawn and pending.
MiraLAX bowel prep was ordered, patient will be n.p.o. after midnight.
Type and screen will be added to the labs for tomorrow.
All her questions were answered
Mk Mar MD
Gynecologic Oncologist
[facility]
[phone]
[2024-07-11] MEDS: GAVILAX 238 GM PO (16:15)
--- NOTE | 2024-07-11 16:15 | CM ---
CM met with pt at bedside
Pt lives with her in a 2 story home. 1 step to enter, 14 steps to 2nd fl
Pt reports independent prior to admission, retired, driving
DME - rolling walker, cane, raised toilet seat - not using
SNF/HH - no past hx
Has ride at discharge
PCP - Dr Natalio Pascual
Pharm - [facility]
CM will follow for d/c needs
Plan - anticipate home no needs when medically ready
[2024-07-11 19:12] LABS: CA 125 24.8 U/mL (0-35)
[2024-07-11] MEDS: ASPIR LOW (ENTERIC COATED) 81 MG PO (21:34)
[2024-07-11 23:02] VITALS: BP 137/83
[2024-07-12] VITALS (12 sets, daily range): BP systolic 93–127; BP diastolic 55–71
[2024-07-12 06:36] LABS: Hematocrit 35.8 % (37.0-47.0); Hemoglobin 12.2 g/dL (12.0-16.0); Mean Corp Hgb Conc. 34.1 g/dL (33.0-37.0); Mean Corpuscular Hgb 31.4 pg (27.0-31.0); Mean Platelet Volume 9.1 fL (7.4-10.4); Platelet Count 319 10^3/uL (130-400); Red Blood Cell Count 3.89 10^6/uL (4.20-5.40); Red Cell Dist. Width 12.5 % (11.5-14.5); White Blood Cell Count 8.4 10^3/uL (4.8-10.8)
[2024-07-12 06:53] LABS: Blood Urea Nitrogen 10 mg/dl (7-17); Carbon Dioxide 27 mmol/L (22-30); Chloride 104 mmol/L (98-107); Estimated Creatinine Clearance 65 ml/min; Glucose 88 mg/dl (70-99); Potassium 4.2 mmol/L (3.5-5.1); Sodium 137 mmol/L (135-145); eGFR > 60.00
[2024-07-12] MEDS: OSCAL 500 + D 500 MG PO (08:26)
[2024-07-12] MEDS: PROTONIX 40 MG PO (08:26)
[2024-07-12] MEDS: PAXIL 20 MG PO (08:26)
[2024-07-12] MEDS: CRESTOR 10 MG PO (08:26)
[2024-07-12] MEDS: SENOKOT-S PO (08:28)
[2024-07-12] MEDS: SENOKOT-S 1 TABLET PO ×2 (08:31→19:50)
[2024-07-12] MEDS: MORPHINE SULFATE 2 MG IV (09:37)
--- NOTE | 2024-07-12 10:45 | W.PN.HOSP.TC ---
Today's Communication/Plan
-
Plan for surgery today.
Assessment / Plan
Assessment / Plan
Physical exam:
General: Acutely ill. Nontoxic
HEENT: Normocephalic, Atraumatic and Moist Mucous Membranes
Respiratory: Clear to Auscultation; Negative Wheezes, Rales or Rhonchi
Cardiac: Regular Rhythm and S1/S2
GI: Soft, Tender and Nondistended
Musculoskeletal: No Clubbing, No Cyanosis and No Edema
Neuro: Awake, Alert and Oriented, no neuro-deficits
Psych: Calm
A/P:
Abdominal pain likely related to complex left pelvic mass, suspicion for ovarian malignancy:
Continue pain control
Appreciated G[employer]LE [employer]ER oncology eval
CA-125 24.8
CEA antigen 0.64
Plan for robotic assisted laparoscopic hysterectomy with LSO today
Discussed with at bedside
Constipation:
Continue bowel regimen
Depression and anxiety
Continue home paroxetine
Hyperlipidemia:
Continue statins, rosuvastatin 10 mg p.o. daily
DVT prophylaxis:
SCDs
CODE STATUS:
Full code
Anticipated Discharge: 24 - 48 hours
Subjective/Interval History
-
Date of Service: July 12, 2024
Patient abdominal pain on and off. No nausea or vomiting. No chest pain.
Objective Data
-
Labs:
Laboratory Results
07/12/24
05:18
WBC 8.4
Hgb 12.2
Hct 35.8 L
Plt Count 319
Sodium 137
Potassium 4.2
Chloride 104
Carbon Dioxide 27
BUN 10
Creatinine 0.7
Glucose 88
Calcium 9.0
Vital Signs:
Vital Signs
Temp Pulse Resp BP Pulse Ox
97.9 F 73 16 127/71 99
07/12/24 07:00 07/12/24 07:00 07/12/24 07:00 07/12/24 07:00 07/12/24 07:00
I&O
07/11/24 07/12/24 07/13/24
06:59 06:59 06:59
Intake Total 1200 / 1200
Balance 1200 / 1200
--- NOTE | 2024-07-12 17:15 | OR.RPT ---
Operative Report
Operative Report
Procedure date: July 12, 2024
Preoperative diagnosis left ovarian mass, abnormal uterine bleeding
Postoperative diagnosis malignant left ovarian neoplasm pending final pathology
Procedure is robotic assisted cytoreductive surgery including total laparoscopic hysterectomy, left salpingo-oophorectomy, extensive posterior cul-de-sac adhesiolysis, infracolic omentectomy, left pelvic and periaortic lymph node dissection,
multiple peritoneal biopsies, pelvic and right diaphragmatic washings, optimal tumor debulking
Surgeon: Mk Mar
Assist: Joycelyn Ca PA-C
Estimated blood loss: 100 cc
Complication: None
Specimens: Left tube and ovary, uterus and cervix, pelvic and right subdiaphragmatic washing, right and left paracolic gutter, right and left pelvic peritoneum, anterior cul-de-sac peritoneum, omentum, left pelvic lymph nodes, left periaortic lymph
nodes
Procedure in detail: This patient was brought to the operating room and placed in supine position, general anesthesia was administered she was intubated without any difficulty. She was placed in lithotomy position using yellowfin stirrups and
prepped on the abdomen perineum and vagina after anesthesia team performed a tap block. Her arms were appropriately padded across all joints and placed along the sides. Timeout procedure was carried out and she received Ancef and Flagyl for
prophylaxis. The Hoyt catheter was inserted into the bladder under sterile conditions. Uterine manipulator inspector elevators type with 3.0 ONELIA ring was inserted into the uterine cavity. Vaginal cuff occluder was insufflated. Attention was turned
abdominally where Veress needle was placed under her left subcostal margin and insufflation of the abdomen with CO2 gas was performed up to pressure of 15 mmHg. Next the X I 8 mm robotic ports were placed in mid epigastrium, right and left upper
quadrant right and left lateral abdomen. Survey of the upper abdomen reveals right and left diaphragms to be normal, liver spleen stomach are normal. Washings were collected from right diaphragm. Patient was placed at 28 degree Trendelenburg.
Robotic system was docked and all instruments were placed. Pelvic washings were collected. The right tube and ovary was absent, left round ligament was sealed and divided anterior and posterior leaves of the broad ligament were dissected open. We
identified the course of the ureter in the retroperitoneum and opened an avascular space between IP ligament and left tube and ovary. The left IP ligament was isolated sealed 3 times with vessel sealer and divided. We gradually mobilized the ovary
which was not attached to any additional structures. Utero-ovarian ligament and attachments were sealed and divided the left tube and ovary was placed in an endoscopic bag for planned retrieval through the vagina. Bladder flap was sharply
developed and advanced below the cervicovaginal junction. The right retroperitoneal space was opened and the course of the ureter was identified. The attachments of the uterus to the posterior cul-de-sac and rectum were taken down sharply
carefully not to injure the rectum itself. Uterosacral ligaments were sealed and divided. Uterine arteries followed by cardinal ligaments were sealed and divided, circumferential incision was made over the ONELIA ring until the uterus was detached
uterus and cervix followed by left tube and ovary in a bag was removed through the pelvis. We then left the cuff open and send the left tube and ovary for frozen section. This returned back as a malignant neoplasm, exact histology cannot be
determined at this time. I went ahead and performed an infracolic omentectomy sealing omental vessels with vessel sealer and the omentum was retrieved through the vagina. Multiple peritoneal biopsies from all normal tissue including right and left
paracolic gutter right and left pelvis including round ligaments and then anterior cul-de-sac were removed and submitted for pathology. We then performed a left-sided retroperitoneal lymph node dissection and the lymph nodes between bifurcation of
common iliac vessel down to the level of deep circumflex iliac artery and vein with lateral border of genitofemoral nerve and medial border of superior vesicle artery was removed, additional lymph nodes in the obturator fossa were removed and all
submitted as left pelvic lymph nodes. Left periaortic lymph nodes were removed from level of TRE down to the level of bifurcation of common iliac vessels. I did not remove any lymph nodes from the right side as they were not enlarged and I suspect
this is a stromal tumor of the ovary. At this point all operative sites were hemostatic 12 mm port in the right lower quadrant was removed and the port site was closed with a Kayode Monaco system using 0 Vicryl suture ligature. Vaginal cuff was
closed with 0 Vicryl suture ligature at both apices incorporating uterosacral ligaments and then V-Loc suture in a bidirectional fashion in 2 layers. The pelvis was irrigated copiously and all instruments were removed and pneumoperitoneum was
released. Hoyt catheter was removed vagina was inspected and there was no bleeding. We closed all skin incisions with 4-0 Monocryl. Skin glue was applied to all incisions. Patient was awakened extubated and returned back to recovery room stable
awake and extubated condition. Counts of laps instruments and needle was correct x 2. I was present and scrubbed for entire procedure as dictated above.
To PACU: Stable extubated.
[2024-07-12] MEDS: LOVENOX 40 MG SC (19:49)
[2024-07-12] MEDS: NSS 1000 IV (19:49)
[2024-07-12] MEDS: COLACE 100 MG PO (19:50)
[2024-07-12] MEDS: ROXICODONE 5 MG PO (20:35)
[2024-07-12] MEDS: MOTRIN 600 MG PO (22:09)
[2024-07-12] MEDS: ASPIR LOW (ENTERIC COATED) 81 MG PO (22:09)
[2024-07-12] MEDS: TYLENOL 650 MG PO (22:10)
[2024-07-13] MEDS: TYLENOL 650 MG PO ×2 (02:19→08:14)
[2024-07-13 03:00] VITALS: BP 111/49
[2024-07-13] MEDS: MOTRIN 600 MG PO ×2 (03:43→10:45)
[2024-07-13] MEDS: DILAUDID 0.5 MG IV (03:44)
[2024-07-13 06:30] LABS: % Basophils 0.1 % (0-2); % Immature Granulocytes 0.5 % (0-0.5); % Lymphocytes 6.3 % (20.5-51.1); % Monocytes 4.9 % (1.7-9.3); % Neutrophils 88.2 % (42.2-75.2); Absolute Immature Granulocytes 0.1 10^3/uL (0-0.05); Absolute Lymphocytes 0.9 10^3/uL (1.2-3.4); Absolute Monocytes 0.7 10^3/uL (0.1-0.6); Absolute Neutrophils 12.4 10^3/uL (1.4-6.5); Hematocrit 32.7 % (37.0-47.0); Mean Corp Hgb Conc. 33.6 g/dL (33.0-37.0); Mean Corpuscular Hgb 30.5 pg (27.0-31.0); Mean Corpuscular Volume 90.6 fL (81.0-99.0); Mean Platelet Volume 9.1 fL (7.4-10.4); Nucleated Red Blood Cells % 0 %; Platelet Count 321 10^3/uL (130-400); Red Blood Cell Count 3.61 10^6/uL (4.20-5.40); Red Cell Dist. Width 12.2 % (11.5-14.5); White Blood Cell Count 14.1 10^3/uL (4.8-10.8)
[2024-07-13 06:45] LABS: ALT (SGPT) 18 U/L (0-35); AST (SGOT) 31 U/L (14-36); Albumin 3.6 g/dl (3.5-5.0); Alkaline Phosphatase 69 U/L (38-126); Blood Urea Nitrogen 10 mg/dl (7-17); Calcium 8.5 mg/dl (8.4-10.2); Carbon Dioxide 27 mmol/L (22-30); Chloride 101 mmol/L (98-107); Estimated Creatinine Clearance 65 ml/min; Glucose 148 mg/dl (70-99); Potassium 4.1 mmol/L (3.5-5.1); Sodium 131 mmol/L (135-145); Total Bilirubin 0.7 mg/dl (0.2-1.3); Total Protein 5.9 g/dl (6.3-8.2); eGFR > 60.00
[2024-07-13 07:00] VITALS: BP 89/49
[2024-07-13 08:08] VITALS: BP 93/60
[2024-07-13] MEDS: OSCAL 500 + D 500 MG PO (08:13)
[2024-07-13] MEDS: SENOKOT-S 1 TABLET PO (08:13)
[2024-07-13] MEDS: PAXIL 20 MG PO (08:13)
[2024-07-13] MEDS: CRESTOR 10 MG PO (08:13)
[2024-07-13] MEDS: COLACE 100 MG PO (08:14)
[2024-07-13] MEDS: PROTONIX 40 MG PO (08:18)
[2024-07-13] MEDS: ROXICODONE 5 MG PO (08:30)
--- NOTE | 2024-07-13 08:48 | W.PN.HOSP.TC ---
Addendum entered and electronically signed by Joce Bloom MD 07/13/24 14:28:
Correction-->Acute blood loss postop anemia
Addendum entered and electronically signed by Joce Bloom MD 07/13/24 14:28:
Acute blood loss anemia
Original Note:
Today's Communication/Plan
-
Discharge planning today
Assessment / Plan
Assessment / Plan
Physical exam:
General: Acutely ill. Nontoxic
HEENT: Normocephalic, Atraumatic and Moist Mucous Membranes
Respiratory: Clear to Auscultation; Negative Wheezes, Rales or Rhonchi
Cardiac: Regular Rhythm and S1/S2
GI: Soft, Tender and Nondistended
Musculoskeletal: No Clubbing, No Cyanosis and No Edema
Neuro: Awake, Alert and Oriented, no neuro-deficits
Psych: Calm
A/P:
Abdominal pain likely related to complex left pelvic mass, suspicion for ovarian malignancy:
Continue pain control
Appreciated [employer]ATIONAL ACCOUNTANT oncology eval
CA-125 24.8
CEA antigen 0.64
Status post robotic assisted laparoscopic hysterectomy with LSO on 07/12
Discussed with at bedside
Leukocytosis:
Likely reactive
Acute postop anemia:
Mild and hemoglobin 11 from 12.2
Constipation:
Continue bowel regimen
Depression and anxiety
Continue home paroxetine
Hyperlipidemia:
Continue statins, rosuvastatin 10 mg p.o. daily
DVT prophylaxis:
SCDs
CODE STATUS:
Full code
Anticipated Discharge: Today
Subjective/Interval History
-
Date of Service: July 13, 2024
Patient denies significant postop discomfort. Afebrile
Objective Data
-
Labs:
Laboratory Results
07/13/24 07/13/24
05:39 05:40
WBC 14.1 H
Hgb 11.0 L
Hct 32.7 L
Plt Count 321
Sodium 131 L
Potassium 4.1
Chloride 101
Carbon Dioxide 27
BUN 10
Creatinine 0.7
Glucose 148 H
Calcium 8.5
Total Bilirubin 0.7
AST 31
ALT 18
Alkaline Phosphatase 69
Vital Signs:
Vital Signs
Temp Pulse Resp BP Pulse Ox
97.7 F 76 16 93/60 100
07/13/24 07:00 07/13/24 08:08 07/13/24 07:00 07/13/24 08:08 07/13/24 07:00
I&O
07/12/24 07/13/24 07/14/24
06:59 06:59 06:59
Intake Total 1200 / 1200 960 / 960
Output Total 350 / 350
Balance 1200 / 1200 610 / 610
--- NOTE | 2024-07-13 09:12 | W.PN.GYNONC ---
Today's Communication
-
OK to discharge to home
Impression / Plan
-
complex left pelvic mass-10x8x8 cm suspicious for cystic neoplasm of the left ovary- current symptoms appear to indicate she has abnormal uterine bleeding with endometrium which is proliferative likely secondary to hormonal stimulation. Many of
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
cell. Based on my review of the CT she does not have any other obvious retroperitoneal adenopathy upper abdominal disease ascites or pleural effusion. Because of the duration of symptoms as well as symptoms of abdominal pain I am recommending
surgery for definitive management. I recommend robotic assisted exploration of the abdomen with plan to perform total laparoscopic hysterectomy, left salpingo-oophorectomy, I suspect the right tube and ovary has already been removed. Surgical
history. She may need a mini laparotomy for extraction of specimen if the specimen is unable to be delivered through the vagina. Frozen section will be obtained and additional staging will be done depending on the histology to include but not
limited to pelvic and para-aortic lymph node dissection multiple peritoneal biopsies, omentectomy. The patient understands that the purpose of these biopsies, complete and perform comprehensive surgical staging. Risk of surgery including infection
bleeding injury to adjacent organs DVT pulmonary embolism and cardiovascular complications were discussed and reviewed.
I will request hospitalist team to provide medical clearance for the patient and performed ECG.
Patient will have blood work including total and free testosterone as well as inhibin B as tumor markers for sex cord stromal tumors. Additional tumor markers for epithelial tumors have already been drawn and pending.
MiraLAX bowel prep was ordered, patient will be n.p.o. after midnight.
Type and screen will be added to the labs for tomorrow.
All her questions were answered
Mk Mar MD
Gynecologic Oncologist
[facility]
[phone]
07/13/24- POD1- s/p robotic assisted total laparoscopic hysterectomy with LSO and staging for left pelvic mass, - recovering well and from surgical view can be discharge today, will wait for medical evaluation.
when discharged can continue Tylenol and Motrin every six hours for 72 hrs for pain management and then PRN.
no lifting more than 10 lbs
no driving for a week
needs to follow up in office in one to 2 weeks
Subjective / Interval History
-
POD #1- She is s/p robotic assisted laparoscopic total hysterectomy with LSO and staging with omental bx. She is feeling good complains of right sided gas pain tolerating diet and has been up and out bed.
Objective Data
-
Lab Results:
07/13/24 05:40
07/13/24 05:39
Physical Exam
Vital Signs / I&O
Vitals
Temp Pulse Resp BP Pulse Ox
97.7 F 76 16 93/60 100
07/13/24 07:00 07/13/24 08:08 07/13/24 07:00 07/13/24 08:08 07/13/24 07:00
I&O
07/11/24 07/12/24 07/13/24 07/14/24
06:59 06:59 06:59 06:59
Intake Total 1200 / 1200 960 / 960
Output Total 350 / 350
Balance 1200 / 1200 610 / 610
Physical Exam
VSS
afebrile
abdomen- soft port sites tender closed no drainage
extremities - no swelling or edema - pumps still on
Respiratory: Clear
Cardiac: Regular Rhythm
Data Reviewed
-
Lab Data: Labs Reviewed
--- NOTE | 2024-07-13 10:51 | CM ---
Patient seen bedside.
Denies home care needs.
Per patient for d/c today.
Spouse will transport.
Plan: home no needs
--- NOTE | 2024-07-13 11:54 | W.DCSUMMARY ---
Discharge Summary
Discharge Data
Date of Admission: 07/12/24
Date of Discharge: 07/13/24
-
Pending Results: Yes
Additional Pending Results:
Biopsy results from surgery.
Hospital Course
Patient is 64 years old female came into the hospital with abdominal pain and felt to be related to recently imaged complex pelvic mass, likely malignant. [facility] consulted. Patient was taken to the operating room on 07/12. She underwent
robotic assisted cytoreductive surgery including total laparoscopic hysterectomy, left salpingo-oophorectomy, extensive posterior cul-de-sac adhesiolysis, infracolic omentectomy, left pelvic and periaortic lymph node dissection, multiple peritoneal
biopsies, pelvic and right diaphragmatic washings, and optimal tumor debulking. Patient was placed on appropriate bowel regimen. Patient did well postop. She remained hemodynamically stable and abdominal pain improved. [facility] cleared her
for discharge. She is being discharged in stable condition today and will follow-up results of biopsy as outpatient.
Discharge duration: 31 minutes
Discharge Plan
-
Patient Disposition: Home (Routine Discharge)
Discharge Diagnosis/Procedures: Pelvic mass status post surgery with total laparoscopic hysterectomy and left salpingo-oophorectomy.
Diet: Low Cholesterol
Activity: Other activity
Additional Activity: As instructed by surgery.
Per surgery:can continue Tylenol and Motrin every six hours for 72 hrs for pain management and then PRN.
no lifting more than 10 lbs
no [address] for a week
needs to follow up in office in one to 2 weeks
Blood Work: Please PCP to order CBC, BMP within 1 week
Referrals:
Kelvin Pascual MD [Family Provider] - in less than 1 week
Mk Mar MD [Active] - in one to two weeks
Prescriptions:
Continued
paroxetine HCl [Paxil] 20 MG tablet
20 mg PO DAILY
Centrum Silver 1 EACH tablet
1 ea PO DAILY
Caltrate 600 plus D 1 EACH tablet,chewable
1 ea PO DAILY
aspirin 81 mg Tablet,Delayed Release (Dr/Ec)
81 mg PO HS
naproxen sodium [Aleve] 220 mg Tablet
440 mg PO BIDPRN PRN (Reason: mild pain)
rosuvastatin 10 mg Tablet
10 mg PO DAILY
Discharge Orders:
Discharge Patient (As Directed); Ordered 07/13/24
Ordered By: Joce Bloom
Discharge Date and Time
Discharge Date/Time: 07/13/24 13:30
Print Language: CHILEAN
--- NOTE | 2024-07-13 14:00 | PN.CDI ---
CDI
- -
CDI:
Physician Documentation Request
Admit Date: 07/12/24 09:32
Dear Doctor Wolf,
Please review the following and provide your response in the progress notes.
Clinical Indicators:
Pt admitted with left ovary mass suspected malignancy
Documented in progress note 814,' Acute postop anemia:Mild and hemoglobin 11 from 12.2...'
Status post robotic assisted laparoscopic hysterectomy with LSO on 100 ml
Based on the above, could you clarify, in your progress note, which of the following is the most likely type of anemia you are evaluating, monitoring and/or treating?
Acute blood loss anemia
Acute Post -op Anemia only
Other ( please specify)
Use of terms such as suspected, likely, concern for, or probable (associated with a specific diagnosis that is being evaluated, monitored, or treated as if it exists) are acceptable and can be coded in the inpatient setting, when documented at the
time of discharge.
Thank you,
Kaia Laird RN
CDI Specialist
[facility]
Please use your independent medical judgment in providing your response.
[2024-07-17 15:33] LABS: Free Testosterone 7.9 pg/mL (0.6-3.8); Sex Hormone Binding Globulin 61 nmol/L (17-125); Total Testosterone,Female/Chil 69 ng/dL (5-32)
== END 2024-07-13 13:30 | disposition home or self-care (01) | DRG 737 ==
LOC: 3 WEST ACU 09:32
PROVIDERS: Physician Assistant Medical; ADMITTING PHYSICIAN Internal Medicine; ATTENDING PHYSICIAN Hospitalist; CONSULT PHYSICIAN Obstetrics & Gynecology Gynecologic Oncology; EMERGENCY PHYSICIAN Emergency Medicine; FAMILY PHYSICIAN Internal Medicine
PROC: 0UNF4ZZ Release Cul-de-sac, Percutaneous Endoscopic Approach (ICD-10-PCS; 2024-07-12)
PROC: 0UT6FZZ Resection of Left Fallopian Tube, Via Natural or Artificial Opening With Percutaneous Endoscopic Assistance (ICD-10-PCS; 2024-07-12)
PROC: 0DBU4ZZ Excision of Omentum, Percutaneous Endoscopic Approach (ICD-10-PCS; 2024-07-12)
PROC: 0DBW4ZX Excision of Peritoneum, Percutaneous Endoscopic Approach, Diagnostic (ICD-10-PCS; 2024-07-12)
PROC: 07BC4ZX Excision of Pelvis Lymphatic, Percutaneous Endoscopic Approach, Diagnostic (ICD-10-PCS; 2024-07-12)
PROC: 07BD4ZX Excision of Aortic Lymphatic, Percutaneous Endoscopic Approach, Diagnostic (ICD-10-PCS; 2024-07-12)
PROC: 8E0W4CZ Robotic Assisted Procedure of Trunk Region, Percutaneous Endoscopic Approach (ICD-10-PCS; 2024-07-12)
PROC: 3E1M48X Irrigation of Peritoneal Cavity using Irrigating Substance, Percutaneous Endoscopic Approach, Diagnostic (ICD-10-PCS; 2024-07-12)
PROC: 0UT9FZZ Resection of Uterus, Via Natural or Artificial Opening With Percutaneous Endoscopic Assistance (ICD-10-PCS; 2024-07-12)
DX: C56.2 Malignant neoplasm of left ovary (principal); D62 Acute posthemorrhagic anemia; N93.9 Abnormal uterine and vaginal bleeding, unspecified; K59.00 Constipation, unspecified; F41.9 Anxiety disorder, unspecified; M41.9 Scoliosis, unspecified; M16.12 Unilateral primary osteoarthritis, left hip; G43.909 Migraine, unspecified, not intractable, without status migrainosus; Z79.82 Long term (current) use of aspirin; Z79.899 Other long term (current) drug therapy; Z87.42 Personal history of other diseases of the female genital tract; Z88.0 Allergy status to penicillin; Z88.1 Allergy status to other antibiotic agents; Z88.5 Allergy status to narcotic agent; Z90.89 Acquired absence of other organs
CPT/HCPCS: 88305; 88307; 88309; 88332; 71260; 74177; 80048; 80053; 82378; 83615; 83735; 84270; 84402; 84403; 85025; 85027; 86304; 86850; 86900; 86901; 88112; 88331; 88341; 88342; 88360; 93005; 99285; Q9967

== ENCOUNTER → 2024-07-16 10:00 | Outpatient (REF) | payer BC, SELFPAY ==
[2024-07-16 11:39] LABS: % Basophils 0.7 % (0-2); % Eosinophils 5.4 % (0-6); % Immature Granulocytes 0.4 % (0-0.5); % Lymphocytes 28.2 % (20.5-51.1); % Monocytes 6.8 % (1.7-9.3); % Neutrophils 58.5 % (42.2-75.2); Absolute Basophils 0.1 10^3/uL (0-0.2); Absolute Eosinophils 0.4 10^3/uL (0-0.7); Absolute Lymphocytes 2.3 10^3/uL (1.2-3.4); Absolute Monocytes 0.6 10^3/uL (0.1-0.6); Absolute Neutrophils 4.8 10^3/uL (1.4-6.5); Hematocrit 36.1 % (37.0-47.0); Hemoglobin 12.2 g/dL (12.0-16.0); Mean Corp Hgb Conc. 33.8 g/dL (33.0-37.0); Mean Corpuscular Hgb 30.9 pg (27.0-31.0); Mean Corpuscular Volume 91.4 fL (81.0-99.0); Mean Platelet Volume 9.3 fL (7.4-10.4); Nucleated Red Blood Cells % 0 %; Platelet Count 367 10^3/uL (130-400); Red Blood Cell Count 3.95 10^6/uL (4.20-5.40); Red Cell Dist. Width 12.7 % (11.5-14.5); White Blood Cell Count 8.2 10^3/uL (4.8-10.8)
[2024-07-16 12:18] LABS: Blood Urea Nitrogen 15 mg/dl (7-17); Carbon Dioxide 27 mmol/L (22-30); Chloride 102 mmol/L (98-107); Glucose 87 mg/dl (70-99); Potassium 5.2 mmol/L (3.5-5.1); Sodium 137 mmol/L (135-145); eGFR > 60.00
== END ==
LOC: REG 10:00
PROVIDERS: ATTENDING PHYSICIAN Internal Medicine
DX: Z48.89 Encounter for other specified surgical aftercare (principal)
CPT/HCPCS: 36415; 80048; 85025

== ENCOUNTER → 2024-07-25 12:14 | Outpatient (REF) | payer BC, SELFPAY ==
[2024-07-25 13:28] LABS: % Eosinophils 2.4 % (0-6); % Immature Granulocytes 0.4 % (0-0.5); % Lymphocytes 22.1 % (20.5-51.1); % Monocytes 5.6 % (1.7-9.3); % Neutrophils 68.5 % (42.2-75.2); Absolute Basophils 0.1 10^3/uL (0-0.2); Absolute Eosinophils 0.3 10^3/uL (0-0.7); Absolute Lymphocytes 2.3 10^3/uL (1.2-3.4); Absolute Monocytes 0.6 10^3/uL (0.1-0.6); Absolute Neutrophils 7.2 10^3/uL (1.4-6.5); Hematocrit 38.1 % (37.0-47.0); Hemoglobin 12.8 g/dL (12.0-16.0); Mean Corp Hgb Conc. 33.6 g/dL (33.0-37.0); Mean Corpuscular Hgb 30.8 pg (27.0-31.0); Mean Corpuscular Volume 91.8 fL (81.0-99.0); Mean Platelet Volume 8.9 fL (7.4-10.4); Nucleated Red Blood Cells % 0 %; Platelet Count 455 10^3/uL (130-400); Red Blood Cell Count 4.15 10^6/uL (4.20-5.40); Red Cell Dist. Width 12.5 % (11.5-14.5); White Blood Cell Count 10.5 10^3/uL (4.8-10.8)
[2024-07-25 13:39] LABS: Urine Albumin Negative (Neg - Trace); Urine Bilirubin Negative (Negative); Urine Character Clear (Clear); Urine Color Straw; Urine Glucose Negative (Negative); Urine Ketone Negative (Negative); Urine Leukocyte Negative (Negative); Urine Nitrite Negative (Negative); Urine Occult Blood 2+ (Negative); Urine Urobilinogen Negative (Neg - 1+)
[2024-07-25 13:58] LABS: INR 0.94; PT 12.3 Sec (11.4-14.6)
[2024-07-25 13:59] LABS: APTT 27.4 Sec (23.4-35.0)
[2024-07-25 15:45] LABS: ALT (SGPT) 28 U/L (0-35); AST (SGOT) 33 U/L (14-36); Alkaline Phosphatase 82 U/L (38-126); Blood Urea Nitrogen 17 mg/dl (7-17); Carbon Dioxide 26 mmol/L (22-30); Chloride 98 mmol/L (98-107); Glucose 85 mg/dl (70-99); Potassium 4.4 mmol/L (3.5-5.1); Sodium 140 mmol/L (135-145); Total Bilirubin 0.6 mg/dl (0.2-1.3); Total Protein 7.7 g/dl (6.3-8.2); eGFR > 60.00
[2024-07-25 19:28] LABS: CA 125 30.4 U/mL (0-35)
== END ==
LOC: REG 12:14
PROVIDERS: ATTENDING PHYSICIAN Obstetrics & Gynecology Gynecologic Oncology; FAMILY PHYSICIAN Internal Medicine
DX: C56.2 Malignant neoplasm of left ovary (principal); R97.8 Other abnormal tumor markers; N30.80 Other cystitis without hematuria
CPT/HCPCS: 36415; 80053; 81003; 81015; 84270; 84402; 84403; 85025; 85610; 85730; 86304; 87086

== ENCOUNTER → 2024-08-05 07:51 | Outpatient (REF) | payer BC, SELFPAY | LOC: PET 07:51 | PROVIDERS: ATTENDING PHYSICIAN Obstetrics & Gynecology Gynecologic Oncology | DX: C56.2 Malignant neoplasm of left ovary (principal) | CPT/HCPCS: 78815; A9552 ==

== ENCOUNTER → 2024-08-23 12:45 | Outpatient (REF) | payer BC, SELFPAY ==
[2024-08-23 15:01] LABS: % Basophils 0.9 % (0-2); % Eosinophils 2.9 % (0-6); % Immature Granulocytes 0.3 % (0-0.5); % Lymphocytes 28.7 % (20.5-51.1); % Monocytes 7.3 % (1.7-9.3); % Neutrophils 59.9 % (42.2-75.2); Absolute Basophils 0.1 10^3/uL (0-0.2); Absolute Eosinophils 0.2 10^3/uL (0-0.7); Absolute Lymphocytes 2.2 10^3/uL (1.2-3.4); Absolute Monocytes 0.6 10^3/uL (0.1-0.6); Absolute Neutrophils 4.5 10^3/uL (1.4-6.5); Hematocrit 39.4 % (37.0-47.0); Hemoglobin 12.9 g/dL (12.0-16.0); Mean Corp Hgb Conc. 32.7 g/dL (33.0-37.0); Mean Corpuscular Hgb 29.3 pg (27.0-31.0); Mean Corpuscular Volume 89.3 fL (81.0-99.0); Mean Platelet Volume 9.1 fL (7.4-10.4); Nucleated Red Blood Cells % 0 %; Platelet Count 376 10^3/uL (130-400); Red Blood Cell Count 4.41 10^6/uL (4.20-5.40); Red Cell Dist. Width 12.1 % (11.5-14.5); White Blood Cell Count 7.5 10^3/uL (4.8-10.8)
[2024-08-23 15:13] LABS: Blood Urea Nitrogen 15 mg/dl (7-17); Calcium 9.8 mg/dl (8.4-10.2); Carbon Dioxide 25 mmol/L (22-30); Chloride 101 mmol/L (98-107); Glucose 88 mg/dl (70-99); Potassium 4.9 mmol/L (3.5-5.1); Sodium 141 mmol/L (135-145); eGFR > 60.00
== END ==
LOC: REG 12:45
PROVIDERS: ATTENDING PHYSICIAN Orthopaedic Surgery; FAMILY PHYSICIAN Internal Medicine
DX: Z01.818 Encounter for other preprocedural examination (principal)
CPT/HCPCS: 36415; 80048; 85025

== ENCOUNTER → 2024-09-05 07:05 | Outpatient (REF) | payer BC, SELFPAY ==
[2024-09-05 07:35] VITALS: BP 135/84; BP_SYST 104
[2024-09-05] MEDS: VANCOCIN 200 IV (08:48)
== END ==
LOC: RADI 07:05
PROVIDERS: ATTENDING PHYSICIAN Obstetrics & Gynecology Gynecologic Oncology; FAMILY PHYSICIAN Internal Medicine
DX: C56.2 Malignant neoplasm of left ovary (principal)
CPT/HCPCS: 36561; 76937; 77001; 99152; 99153; C1788

== ENCOUNTER → 2024-09-12 07:44 | Outpatient (REF) | payer BC, SELFPAY ==
--- NOTE | 2024-09-12 08:24 | W.PN.UPDATE ---
Update Note
Progress Note Update
Patient presents for evaluation of severe pain at port site and venotomy site, 1 week after right IJ port placement. She reports that her pain has been shooting up to her right ear, and has recently started shooting down her right arm. She is unable
to lie flat due to exacerbation of symptoms, and feels like she needs to hold up her right breast with a bra or her hand to improve symptoms.
I told her that these symptoms are not normal following port placement, and that there may be some nerve impingement by the port. I recommended port removal, and offered other options for chemotherapy access: 1) place a new right sided port, which
hopefully will not impinge on a nerve 2) place a new left sided port 3) place a PICC, which should last the expected four months of her treatment. Her treatment is scheduled to begin in approximately 2 weeks.
She would like to discuss with her , and get back to us with her decision. All questions answered.
== END ==
LOC: RADI 07:44
PROVIDERS: ATTENDING PHYSICIAN Obstetrics & Gynecology Gynecologic Oncology; FAMILY PHYSICIAN Internal Medicine
DX: T82.848A Pain due to vascular prosthetic devices, implants and grafts, initial encounter (principal); Y82.8 Other medical devices associated with adverse incidents

== ENCOUNTER → 2024-09-24 07:41 | Outpatient (REF) | payer BC, SELFPAY ==
[2024-09-24 09:27] LABS: % Basophils 1.2 % (0-2); % Eosinophils 4.8 % (0-6); % Immature Granulocytes 0.3 % (0-0.5); % Lymphocytes 37.3 % (20.5-51.1); % Monocytes 9.5 % (1.7-9.3); % Neutrophils 46.9 % (42.2-75.2); Absolute Basophils 0.1 10^3/uL (0-0.2); Absolute Eosinophils 0.3 10^3/uL (0-0.7); Absolute Lymphocytes 2.5 10^3/uL (1.2-3.4); Absolute Monocytes 0.7 10^3/uL (0.1-0.6); Absolute Neutrophils 3.2 10^3/uL (1.4-6.5); Hematocrit 39.6 % (37.0-47.0); Mean Corp Hgb Conc. 32.8 g/dL (33.0-37.0); Mean Corpuscular Hgb 29.3 pg (27.0-31.0); Mean Corpuscular Volume 89.4 fL (81.0-99.0); Mean Platelet Volume 8.8 fL (7.4-10.4); Nucleated Red Blood Cells % 0 %; Platelet Count 398 10^3/uL (130-400); Red Blood Cell Count 4.43 10^6/uL (4.20-5.40); Red Cell Dist. Width 12.2 % (11.5-14.5); White Blood Cell Count 6.8 10^3/uL (4.8-10.8)
[2024-09-24 10:06] LABS: ALT (SGPT) 25 U/L (0-35); AST (SGOT) 31 U/L (14-36); Albumin 4.7 g/dl (3.5-5.0); Alkaline Phosphatase 72 U/L (38-126); Blood Urea Nitrogen 15 mg/dl (7-17); Calcium 9.7 mg/dl (8.4-10.2); Carbon Dioxide 27 mmol/L (22-30); Chloride 102 mmol/L (98-107); Glucose 88 mg/dl (70-99); Magnesium 2.2 mg/dl (1.6-2.3); Potassium 4.8 mmol/L (3.5-5.1); Sodium 143 mmol/L (135-145); Total Bilirubin 0.5 mg/dl (0.2-1.3); Total Protein 7.5 g/dl (6.3-8.2); eGFR > 60.00
== END ==
LOC: REG 07:41
PROVIDERS: ATTENDING PHYSICIAN Obstetrics & Gynecology Gynecologic Oncology; FAMILY PHYSICIAN Internal Medicine
DX: C56.2 Malignant neoplasm of left ovary (principal); R97.8 Other abnormal tumor markers; N30.80 Other cystitis without hematuria; Z71.9 Counseling, unspecified
CPT/HCPCS: 36415; 80053; 83735; 85025

== ENCOUNTER → 2024-10-15 07:20 | Outpatient (REF) | payer BC, SELFPAY ==
[2024-10-15 08:16] LABS: % Basophils 2.3 % (0-2); % Eosinophils 3.5 % (0-6); % Immature Granulocytes 0.4 % (0-0.5); % Lymphocytes 35.3 % (20.5-51.1); % Monocytes 11.6 % (1.7-9.3); % Neutrophils 46.9 % (42.2-75.2); Absolute Basophils 0.1 10^3/uL (0-0.2); Absolute Eosinophils 0.2 10^3/uL (0-0.7); Absolute Lymphocytes 1.8 10^3/uL (1.2-3.4); Absolute Monocytes 0.6 10^3/uL (0.1-0.6); Absolute Neutrophils 2.4 10^3/uL (1.4-6.5); Hematocrit 35.8 % (37.0-47.0); Mean Corp Hgb Conc. 33.5 g/dL (33.0-37.0); Mean Corpuscular Hgb 30.5 pg (27.0-31.0); Mean Corpuscular Volume 90.9 fL (81.0-99.0); Mean Platelet Volume 8.7 fL (7.4-10.4); Nucleated Red Blood Cells % 0 %; Platelet Count 413 10^3/uL (130-400); Red Blood Cell Count 3.94 10^6/uL (4.20-5.40); Red Cell Dist. Width 13.2 % (11.5-14.5); White Blood Cell Count 5.2 10^3/uL (4.8-10.8)
[2024-10-15 09:02] LABS: ALT (SGPT) 55 U/L (0-35); AST (SGOT) 44 U/L (14-36); Albumin 4.5 g/dl (3.5-5.0); Alkaline Phosphatase 96 U/L (38-126); Blood Urea Nitrogen 18 mg/dl (7-17); Calcium 10.2 mg/dl (8.4-10.2); Carbon Dioxide 28 mmol/L (22-30); Chloride 103 mmol/L (98-107); Glucose 94 mg/dl (70-99); Magnesium 2.2 mg/dl (1.6-2.3); Potassium 5.3 mmol/L (3.5-5.1); Sodium 141 mmol/L (135-145); Total Bilirubin 0.8 mg/dl (0.2-1.3); Total Protein 7.1 g/dl (6.3-8.2); eGFR > 60.00
== END ==
LOC: REG 07:20
PROVIDERS: ATTENDING PHYSICIAN Obstetrics & Gynecology Gynecologic Oncology; FAMILY PHYSICIAN Internal Medicine
DX: C56.2 Malignant neoplasm of left ovary (principal); R97.8 Other abnormal tumor markers; N30.80 Other cystitis without hematuria; Z71.9 Counseling, unspecified
CPT/HCPCS: 36415; 80053; 83735; 85025

== ENCOUNTER → 2024-10-24 07:34 | Outpatient (REF) | payer BC, SELFPAY ==
[2024-10-24 08:45] LABS: ALT (SGPT) 127 U/L (0-35); AST (SGOT) 109 U/L (14-36); Albumin 4.8 g/dl (3.5-5.0); Alkaline Phosphatase 149 U/L (38-126); Blood Urea Nitrogen 15 mg/dl (7-17); Calcium 9.9 mg/dl (8.4-10.2); Carbon Dioxide 28 mmol/L (22-30); Chloride 101 mmol/L (98-107); Glucose 96 mg/dl (70-99); Magnesium 1.9 mg/dl (1.6-2.3); Sodium 141 mmol/L (135-145); Total Bilirubin 0.2 mg/dl (0.2-1.3); Total Protein 7.5 g/dl (6.3-8.2); eGFR > 60.00
[2024-10-24 09:05] LABS: % Basophils 0.1 % (0-2); % Eosinophils 3.9 % (0-6); % Immature Granulocytes 0.7 % (0-0.5); % Lymphocytes 13.8 % (20.5-51.1); % Monocytes 9.1 % (1.7-9.3); % Neutrophils 72.4 % (42.2-75.2); Absolute Eosinophils 0.6 10^3/uL (0-0.7); Absolute Immature Granulocytes 0.1 10^3/uL (0-0.05); Absolute Lymphocytes 2.1 10^3/uL (1.2-3.4); Absolute Monocytes 1.4 10^3/uL (0.1-0.6); Absolute Neutrophils 10.9 10^3/uL (1.4-6.5); Hemoglobin 12.2 g/dL (12.0-16.0); Mean Corp Hgb Conc. 32.1 g/dL (33.0-37.0); Mean Corpuscular Hgb 29.9 pg (27.0-31.0); Mean Corpuscular Volume 93.1 fL (81.0-99.0); Mean Platelet Volume 9.3 fL (7.4-10.4); Nucleated Red Blood Cells % 0 %; Platelet Count 222 10^3/uL (130-400); Red Blood Cell Count 4.08 10^6/uL (4.20-5.40)
== END ==
LOC: REG 07:34
PROVIDERS: ATTENDING PHYSICIAN Obstetrics & Gynecology Gynecologic Oncology; FAMILY PHYSICIAN Internal Medicine
DX: C56.2 Malignant neoplasm of left ovary (principal); R97.8 Other abnormal tumor markers; N30.80 Other cystitis without hematuria; Z71.9 Counseling, unspecified
CPT/HCPCS: 36415; 80053; 83735; 85025

== ENCOUNTER → 2024-11-05 07:54 | Outpatient (REF) | payer BC, SELFPAY ==
[2024-11-05 08:36] LABS: % Basophils 1.2 % (0-2); % Eosinophils 3.8 % (0-6); % Immature Granulocytes 0.4 % (0-0.5); % Lymphocytes 33.5 % (20.5-51.1); % Monocytes 10.2 % (1.7-9.3); % Neutrophils 50.9 % (42.2-75.2); Absolute Basophils 0.1 10^3/uL (0-0.2); Absolute Eosinophils 0.2 10^3/uL (0-0.7); Absolute Lymphocytes 1.7 10^3/uL (1.2-3.4); Absolute Monocytes 0.5 10^3/uL (0.1-0.6); Absolute Neutrophils 2.5 10^3/uL (1.4-6.5); Hematocrit 35.2 % (37.0-47.0); Hemoglobin 11.6 g/dL (12.0-16.0); Mean Corpuscular Hgb 30.7 pg (27.0-31.0); Mean Corpuscular Volume 93.1 fL (81.0-99.0); Mean Platelet Volume 8.2 fL (7.4-10.4); Nucleated Red Blood Cells % 0 %; Platelet Count 483 10^3/uL (130-400); Red Blood Cell Count 3.78 10^6/uL (4.20-5.40); Red Cell Dist. Width 14.6 % (11.5-14.5)
[2024-11-05 09:07] LABS: ALT (SGPT) 40 U/L (0-35); AST (SGOT) 32 U/L (14-36); Albumin 4.5 g/dl (3.5-5.0); Alkaline Phosphatase 103 U/L (38-126); Blood Urea Nitrogen 17 mg/dl (7-17); Calcium 9.5 mg/dl (8.4-10.2); Carbon Dioxide 27 mmol/L (22-30); Chloride 102 mmol/L (98-107); Glucose 126 mg/dl (70-99); Potassium 4.3 mmol/L (3.5-5.1); Sodium 139 mmol/L (135-145); Total Bilirubin 0.8 mg/dl (0.2-1.3); eGFR > 60.00
[2024-11-07 18:56] LABS: CA 125 < 5.5 U/mL (0-35)
== END ==
LOC: REG 07:54
PROVIDERS: ATTENDING PHYSICIAN Obstetrics & Gynecology Gynecologic Oncology; FAMILY PHYSICIAN Internal Medicine
DX: R97.8 Other abnormal tumor markers (principal); N30.80 Other cystitis without hematuria; Z71.9 Counseling, unspecified; Z12.31 Encounter for screening mammogram for malignant neoplasm of breast; C56.2 Malignant neoplasm of left ovary
CPT/HCPCS: 36415; 80053; 83735; 85025; 86304

== ENCOUNTER → 2024-12-03 07:10 | Outpatient (REF) | payer BC, SELFPAY ==
[2024-12-03 08:12] LABS: % Basophils 1.1 % (0-2); % Eosinophils 1.5 % (0-6); % Immature Granulocytes 0.4 % (0-0.5); % Lymphocytes 33.9 % (20.5-51.1); % Monocytes 12.5 % (1.7-9.3); % Neutrophils 50.6 % (42.2-75.2); Absolute Basophils 0.1 10^3/uL (0-0.2); Absolute Eosinophils 0.1 10^3/uL (0-0.7); Absolute Lymphocytes 1.8 10^3/uL (1.2-3.4); Absolute Monocytes 0.7 10^3/uL (0.1-0.6); Absolute Neutrophils 2.7 10^3/uL (1.4-6.5); Hematocrit 35.2 % (37.0-47.0); Hemoglobin 11.4 g/dL (12.0-16.0); Mean Corp Hgb Conc. 32.4 g/dL (33.0-37.0); Mean Corpuscular Volume 95.7 fL (81.0-99.0); Mean Platelet Volume 8.5 fL (7.4-10.4); Nucleated Red Blood Cells % 0 %; Platelet Count 377 10^3/uL (130-400); Red Blood Cell Count 3.68 10^6/uL (4.20-5.40); Red Cell Dist. Width 15.3 % (11.5-14.5); White Blood Cell Count 5.4 10^3/uL (4.8-10.8)
[2024-12-03 09:08] LABS: ALT (SGPT) 31 U/L (0-35); AST (SGOT) 30 U/L (14-36); Albumin 4.4 g/dl (3.5-5.0); Alkaline Phosphatase 103 U/L (38-126); Blood Urea Nitrogen 19 mg/dl (7-17); Calcium 9.8 mg/dl (8.4-10.2); Carbon Dioxide 27 mmol/L (22-30); Chloride 100 mmol/L (98-107); Glucose 95 mg/dl (70-99); Magnesium 2.1 mg/dl (1.6-2.3); Potassium 4.6 mmol/L (3.5-5.1); Sodium 138 mmol/L (135-145); Total Bilirubin 0.4 mg/dl (0.2-1.3); Total Protein 7.1 g/dl (6.3-8.2); eGFR > 60.00
== END ==
LOC: REG 07:10
PROVIDERS: ATTENDING PHYSICIAN Obstetrics & Gynecology Gynecologic Oncology; FAMILY PHYSICIAN Internal Medicine
DX: C56.2 Malignant neoplasm of left ovary (principal); R97.8 Other abnormal tumor markers; N30.80 Other cystitis without hematuria; Z71.9 Counseling, unspecified; Z12.31 Encounter for screening mammogram for malignant neoplasm of breast
CPT/HCPCS: 36415; 80053; 83735; 85025

== ENCOUNTER → 2024-12-12 10:29 | Outpatient (REF) | payer BC, SELFPAY ==
[2024-12-12 11:04] LABS: % Basophils 1.1 % (0-2); % Eosinophils 3.2 % (0-6); % Immature Granulocytes 0.3 % (0-0.5); % Lymphocytes 45.7 % (20.5-51.1); % Monocytes 4.3 % (1.7-9.3); % Neutrophils 45.4 % (42.2-75.2); Absolute Eosinophils 0.1 10^3/uL (0-0.7); Absolute Lymphocytes 1.7 10^3/uL (1.2-3.4); Absolute Monocytes 0.2 10^3/uL (0.1-0.6); Absolute Neutrophils 1.7 10^3/uL (1.4-6.5); Hematocrit 33.7 % (37.0-47.0); Hemoglobin 10.8 g/dL (12.0-16.0); Mean Corpuscular Hgb 30.9 pg (27.0-31.0); Mean Corpuscular Volume 96.3 fL (81.0-99.0); Mean Platelet Volume 8.9 fL (7.4-10.4); Nucleated Red Blood Cells % 0 %; Platelet Count 250 10^3/uL (130-400); Red Cell Dist. Width 14.4 % (11.5-14.5); White Blood Cell Count 3.8 10^3/uL (4.8-10.8)
[2024-12-12 11:49] LABS: ALT (SGPT) 43 U/L (0-35); AST (SGOT) 37 U/L (14-36); Albumin 4.7 g/dl (3.5-5.0); Alkaline Phosphatase 80 U/L (38-126); Blood Urea Nitrogen 21 mg/dl (7-17); Calcium 9.8 mg/dl (8.4-10.2); Carbon Dioxide 28 mmol/L (22-30); Chloride 100 mmol/L (98-107); Glucose 100 mg/dl (70-99); Potassium 4.9 mmol/L (3.5-5.1); Sodium 138 mmol/L (135-145); Total Bilirubin 0.6 mg/dl (0.2-1.3); Total Protein 7.2 g/dl (6.3-8.2); eGFR > 60.00
== END ==
LOC: REG 10:29
PROVIDERS: ATTENDING PHYSICIAN Obstetrics & Gynecology Gynecologic Oncology; FAMILY PHYSICIAN Internal Medicine
DX: C56.2 Malignant neoplasm of left ovary (principal); R97.8 Other abnormal tumor markers; N30.80 Other cystitis without hematuria; Z71.9 Counseling, unspecified; Z12.31 Encounter for screening mammogram for malignant neoplasm of breast
CPT/HCPCS: 36415; 80053; 83735; 85025

== ENCOUNTER → 2024-12-16 16:30 | Outpatient (REF) | payer BC, SELFPAY ==
[2024-12-16 14:33] LABS: Hemoglobin 10.6 g/dL (12.0-16.0); Mean Corp Hgb Conc. 32.1 g/dL (33.0-37.0); Mean Corpuscular Hgb 31.6 pg (27.0-31.0); Mean Corpuscular Volume 98.5 fL (81.0-99.0); Mean Platelet Volume 8.8 fL (7.4-10.4); Platelet Count 277 10^3/uL (130-400); Red Blood Cell Count 3.35 10^6/uL (4.20-5.40); Red Cell Dist. Width 14.9 % (11.5-14.5); White Blood Cell Count 19.3 10^3/uL (4.8-10.8)
[2024-12-16 15:21] LABS: Band Neutrophils 12 % (0-3); Lymphocytes 22 % (20-51); Monocytes 18 % (2-9); Segmented Neutrophils 35 % (42-75)
[2024-12-16 15:22] LABS: Eosinophils 3 % (0-6)
[2024-12-16 15:23] LABS: Metamyelocytes 5 % (-); Myelocytes 4 % (-); Normal RBC Morphology Yes; Platelets Checked Yes; Total Cells Counted 100
[2024-12-16 15:24] LABS: Atypical Lymphocytes 1 %
== END ==
LOC: OIDL 16:30
PROVIDERS: ATTENDING PHYSICIAN Obstetrics & Gynecology Gynecologic Oncology
DX: C56.2 Malignant neoplasm of left ovary (principal)
CPT/HCPCS: 85025

== ENCOUNTER → 2024-12-20 11:29 | Outpatient (REF) | payer BC, SELFPAY ==
[2024-12-20 11:41] LABS: % Basophils 0.5 % (0-2); % Eosinophils 2.9 % (0-6); % Immature Granulocytes 4.8 % (0-0.5); % Monocytes 8.9 % (1.7-9.3); % Neutrophils 65.9 % (42.2-75.2); Absolute Eosinophils 0.2 10^3/uL (0-0.7); Absolute Immature Granulocytes 0.3 10^3/uL (0-0.05); Absolute Lymphocytes 1.1 10^3/uL (1.2-3.4); Absolute Monocytes 0.6 10^3/uL (0.1-0.6); Absolute Neutrophils 4.4 10^3/uL (1.4-6.5); Hematocrit 36.4 % (37.0-47.0); Hemoglobin 12.2 g/dL (12.0-16.0); Mean Corp Hgb Conc. 33.5 g/dL (33.0-37.0); Mean Corpuscular Hgb 31.8 pg (27.0-31.0); Mean Corpuscular Volume 94.8 fL (81.0-99.0); Mean Platelet Volume 8.1 fL (7.4-10.4); Platelet Count 269 10^3/uL (130-400); Red Blood Cell Count 3.84 10^6/uL (4.20-5.40); Red Cell Dist. Width 14.3 % (11.5-14.5); White Blood Cell Count 6.6 10^3/uL (4.8-10.8)
== END ==
LOC: OIDL 11:29
PROVIDERS: ATTENDING PHYSICIAN Obstetrics & Gynecology Gynecologic Oncology
DX: C56.2 Malignant neoplasm of left ovary (principal)
CPT/HCPCS: 36415; 85025

== ENCOUNTER → 2024-12-26 07:41 | Outpatient (REF) | payer BC, SELFPAY ==
[2024-12-26 08:21] LABS: % Basophils 1.9 % (0-2); % Eosinophils 3.5 % (0-6); % Lymphocytes 46.7 % (20.5-51.1); % Monocytes 11.2 % (1.7-9.3); % Neutrophils 36.7 % (42.2-75.2); Absolute Basophils 0.1 10^3/uL (0-0.2); Absolute Eosinophils 0.1 10^3/uL (0-0.7); Absolute Lymphocytes 1.2 10^3/uL (1.2-3.4); Absolute Monocytes 0.3 10^3/uL (0.1-0.6); Hematocrit 34.2 % (37.0-47.0); Hemoglobin 11.5 g/dL (12.0-16.0); Mean Corp Hgb Conc. 33.6 g/dL (33.0-37.0); Mean Corpuscular Hgb 32.2 pg (27.0-31.0); Mean Corpuscular Volume 95.8 fL (81.0-99.0); Mean Platelet Volume 8.2 fL (7.4-10.4); Platelet Count 281 10^3/uL (130-400); Red Blood Cell Count 3.57 10^6/uL (4.20-5.40); Red Cell Dist. Width 13.9 % (11.5-14.5); White Blood Cell Count 2.6 10^3/uL (4.8-10.8)
[2024-12-26 09:30] LABS: ALT (SGPT) 39 U/L (0-35); AST (SGOT) 38 U/L (14-36); Albumin 4.7 g/dl (3.5-5.0); Alkaline Phosphatase 102 U/L (38-126); Blood Urea Nitrogen 24 mg/dl (7-17); Calcium 10.2 mg/dl (8.4-10.2); Carbon Dioxide 28 mmol/L (22-30); Chloride 101 mmol/L (98-107); Glucose 85 mg/dl (70-99); Magnesium 2.3 mg/dl (1.6-2.3); Potassium 4.4 mmol/L (3.5-5.1); Sodium 139 mmol/L (135-145); Total Bilirubin 0.6 mg/dl (0.2-1.3); Total Protein 7.4 g/dl (6.3-8.2); eGFR > 60.00
== END ==
LOC: OIDL 07:41
PROVIDERS: ATTENDING PHYSICIAN Obstetrics & Gynecology Gynecologic Oncology
DX: C56.2 Malignant neoplasm of left ovary (principal)
CPT/HCPCS: 36415; 80053; 83735; 85025

== ENCOUNTER → 2025-01-16 07:43 | Outpatient (REF) | payer BC, SELFPAY ==
[2025-01-16 08:06] LABS: % Basophils 0.8 % (0-2); % Eosinophils 2.1 % (0-6); % Immature Granulocytes 0.3 % (0-0.5); % Lymphocytes 30.9 % (20.5-51.1); % Monocytes 11.7 % (1.7-9.3); % Neutrophils 54.2 % (42.2-75.2); Absolute Eosinophils 0.1 10^3/uL (0-0.7); Absolute Lymphocytes 1.2 10^3/uL (1.2-3.4); Absolute Monocytes 0.5 10^3/uL (0.1-0.6); Absolute Neutrophils 2.1 10^3/uL (1.4-6.5); Hematocrit 33.9 % (37.0-47.0); Hemoglobin 11.4 g/dL (12.0-16.0); Mean Corp Hgb Conc. 33.6 g/dL (33.0-37.0); Mean Corpuscular Hgb 32.8 pg (27.0-31.0); Mean Corpuscular Volume 97.4 fL (81.0-99.0); Mean Platelet Volume 7.9 fL (7.4-10.4); Platelet Count 369 10^3/uL (130-400); Red Blood Cell Count 3.48 10^6/uL (4.20-5.40); Red Cell Dist. Width 13.4 % (11.5-14.5); White Blood Cell Count 3.9 10^3/uL (4.8-10.8)
[2025-01-16 09:58] LABS: ALT (SGPT) 25 U/L (0-35); AST (SGOT) 25 U/L (14-36); Albumin 4.6 g/dl (3.5-5.0); Alkaline Phosphatase 117 U/L (38-126); Blood Urea Nitrogen 19 mg/dl (7-17); Calcium 9.6 mg/dl (8.4-10.2); Carbon Dioxide 27 mmol/L (22-30); Chloride 102 mmol/L (98-107); Glucose 90 mg/dl (70-99); Potassium 4.9 mmol/L (3.5-5.1); Sodium 139 mmol/L (135-145); Total Bilirubin 0.8 mg/dl (0.2-1.3); Total Protein 7.2 g/dl (6.3-8.2); eGFR > 60.00
[2025-01-16 10:07] LABS: Magnesium 2.3 mg/dl (1.6-2.3)
== END ==
LOC: OIDL 07:43
PROVIDERS: ATTENDING PHYSICIAN Obstetrics & Gynecology Gynecologic Oncology; FAMILY PHYSICIAN Internal Medicine
DX: C56.2 Malignant neoplasm of left ovary (principal)
CPT/HCPCS: 36415; 80053; 83735; 85025

== ENCOUNTER → 2025-01-23 08:08 | Outpatient (REF) | payer BC, SELFPAY | LOC: WDC 08:08 | PROVIDERS: ATTENDING PHYSICIAN Physician Assistant Surgical; FAMILY PHYSICIAN Internal Medicine | DX: Z12.31 Encounter for screening mammogram for malignant neoplasm of breast (principal) | CPT/HCPCS: 77063; 77067 ==

== ENCOUNTER → 2025-01-23 08:45 | Outpatient (REF) | payer BC, SELFPAY ==
[2025-01-23 09:23] LABS: % Eosinophils 1.3 % (0-6); % Immature Granulocytes 0.3 % (0-0.5); % Lymphocytes 45.5 % (20.5-51.1); % Monocytes 4.8 % (1.7-9.3); % Neutrophils 47.1 % (42.2-75.2); Absolute Lymphocytes 1.4 10^3/uL (1.2-3.4); Absolute Monocytes 0.2 10^3/uL (0.1-0.6); Absolute Neutrophils 1.5 10^3/uL (1.4-6.5); Hematocrit 33.5 % (37.0-47.0); Hemoglobin 11.3 g/dL (12.0-16.0); Mean Corp Hgb Conc. 33.7 g/dL (33.0-37.0); Mean Corpuscular Hgb 32.7 pg (27.0-31.0); Mean Corpuscular Volume 96.8 fL (81.0-99.0); Mean Platelet Volume 8.1 fL (7.4-10.4); Platelet Count 314 10^3/uL (130-400); Red Blood Cell Count 3.46 10^6/uL (4.20-5.40); Red Cell Dist. Width 12.8 % (11.5-14.5); White Blood Cell Count 3.1 10^3/uL (4.8-10.8)
== END ==
LOC: OIDL 08:45
PROVIDERS: ATTENDING PHYSICIAN Obstetrics & Gynecology Gynecologic Oncology; FAMILY PHYSICIAN Internal Medicine
DX: C56.2 Malignant neoplasm of left ovary (principal); R97.8 Other abnormal tumor markers; N30.80 Other cystitis without hematuria
CPT/HCPCS: 36415; 85025

== ENCOUNTER → 2025-02-21 07:44 | Outpatient (REF) | payer BC, SELFPAY ==
[2025-02-21 08:47] LABS: % Basophils 0.3 % (0-2); % Eosinophils 4.6 % (0-6); % Lymphocytes 34.8 % (20.5-51.1); % Monocytes 9.2 % (1.7-9.3); % Neutrophils 51.1 % (42.2-75.2); Absolute Eosinophils 0.2 10^3/uL (0-0.7); Absolute Lymphocytes 1.2 10^3/uL (1.2-3.4); Absolute Monocytes 0.3 10^3/uL (0.1-0.6); Absolute Neutrophils 1.8 10^3/uL (1.4-6.5); Hematocrit 35.5 % (37.0-47.0); Hemoglobin 12.1 g/dL (12.0-16.0); Mean Corp Hgb Conc. 34.1 g/dL (33.0-37.0); Mean Corpuscular Hgb 32.9 pg (27.0-31.0); Mean Corpuscular Volume 96.5 fL (81.0-99.0); Platelet Count 247 10^3/uL (130-400); Red Blood Cell Count 3.68 10^6/uL (4.20-5.40); Red Cell Dist. Width 12.2 % (11.5-14.5); White Blood Cell Count 3.5 10^3/uL (4.8-10.8)
[2025-02-21 09:43] LABS: ALT (SGPT) 24 U/L (0-35); AST (SGOT) 29 U/L (14-36); Albumin 4.6 g/dl (3.5-5.0); Alkaline Phosphatase 104 U/L (38-126); Blood Urea Nitrogen 17 mg/dl (7-17); Calcium 10.3 mg/dl (8.4-10.2); Carbon Dioxide 30 mmol/L (22-30); Chloride 104 mmol/L (98-107); Glucose 88 mg/dl (70-99); Potassium 4.4 mmol/L (3.5-5.1); Sodium 143 mmol/L (135-145); Total Bilirubin 0.7 mg/dl (0.2-1.3); Total Protein 7.5 g/dl (6.3-8.2); eGFR > 60.00
[2025-02-21 10:55] LABS: CA 125 < 5.5 U/mL (0-35)
== END ==
LOC: OIDL 07:44
PROVIDERS: ATTENDING PHYSICIAN Obstetrics & Gynecology Gynecologic Oncology; FAMILY PHYSICIAN Internal Medicine
DX: C56.2 Malignant neoplasm of left ovary (principal); R97.8 Other abnormal tumor markers; N30.80 Other cystitis without hematuria
CPT/HCPCS: 36415; 80053; 85025; 86304

== ENCOUNTER → 2025-02-22 09:12 | Outpatient (REF) | payer BC, SELFPAY | LOC: RAD 09:12 | PROVIDERS: ATTENDING PHYSICIAN Obstetrics & Gynecology Gynecologic Oncology; FAMILY PHYSICIAN Internal Medicine | DX: Z71.9 Counseling, unspecified (principal); C56.2 Malignant neoplasm of left ovary; R97.8 Other abnormal tumor markers; N30.80 Other cystitis without hematuria | CPT/HCPCS: 71260; 74177; Q9967 ==

== ENCOUNTER → 2025-03-06 16:46 | Outpatient (REF) | payer BC, SELFPAY ==
[2025-03-06 17:50] LABS: % Basophils 0.5 % (0-2); % Eosinophils 2.8 % (0-6); % Lymphocytes 33.3 % (20.5-51.1); % Monocytes 10.3 % (1.7-9.3); % Neutrophils 53.1 % (42.2-75.2); Absolute Eosinophils 0.2 10^3/uL (0-0.7); Absolute Lymphocytes 1.9 10^3/uL (1.2-3.4); Absolute Monocytes 0.6 10^3/uL (0.1-0.6); Hemoglobin 11.7 g/dL (12.0-16.0); Mean Corp Hgb Conc. 33.4 g/dL (33.0-37.0); Mean Corpuscular Volume 98.6 fL (81.0-99.0); Mean Platelet Volume 8.5 fL (7.4-10.4); Nucleated Red Blood Cells % 0 %; Platelet Count 303 10^3/uL (130-400); Red Blood Cell Count 3.55 10^6/uL (4.20-5.40); Red Cell Dist. Width 12.2 % (11.5-14.5); White Blood Cell Count 5.6 10^3/uL (4.8-10.8)
[2025-03-06 18:03] LABS: ALT (SGPT) 23 U/L (0-35); AST (SGOT) 26 U/L (14-36); Alkaline Phosphatase 101 U/L (38-126); Blood Urea Nitrogen 22 mg/dl (7-17); Calcium 9.8 mg/dl (8.4-10.2); Carbon Dioxide 28 mmol/L (22-30); Chloride 104 mmol/L (98-107); Glucose 94 mg/dl (70-99); Magnesium 2.2 mg/dl (1.6-2.3); Potassium 4.4 mmol/L (3.5-5.1); Sodium 144 mmol/L (135-145); Total Bilirubin 0.4 mg/dl (0.2-1.3); Total Protein 7.6 g/dl (6.3-8.2); eGFR > 60.00
== END ==
LOC: REG 16:46
PROVIDERS: ATTENDING PHYSICIAN Obstetrics & Gynecology Gynecologic Oncology; FAMILY PHYSICIAN Internal Medicine
DX: C56.2 Malignant neoplasm of left ovary (principal); R97.8 Other abnormal tumor markers; N30.80 Other cystitis without hematuria; Z71.9 Counseling, unspecified; Z12.31 Encounter for screening mammogram for malignant neoplasm of breast
CPT/HCPCS: 36415; 80053; 83735; 85025

== ENCOUNTER → 2025-03-14 13:03 | Outpatient (REF) | payer BC, SELFPAY | LOC: RCS 13:03 | PROVIDERS: ATTENDING PHYSICIAN Orthopaedic Surgery; FAMILY PHYSICIAN Internal Medicine | DX: Z01.818 Encounter for other preprocedural examination (principal) | CPT/HCPCS: 93005 ==

== ENCOUNTER → 2025-03-15 12:35 | Outpatient (REF) | payer BC, SELFPAY ==
[2025-03-15 12:59] VITALS: BP 131/76; BP_SYST 75
[2025-03-15 14:09] VITALS: BP 156/80; BP_SYST 75
== END ==
LOC: RADI 12:35
PROVIDERS: ATTENDING PHYSICIAN Obstetrics & Gynecology Gynecologic Oncology; FAMILY PHYSICIAN Internal Medicine
DX: Z45.2 Encounter for adjustment and management of vascular access device (principal); C56.2 Malignant neoplasm of left ovary
CPT/HCPCS: 36590; 77001

== ENCOUNTER → 2025-04-26 11:14 | Outpatient (REF) | payer BC, SELFPAY ==
--- NOTE | 2025-04-26 12:02 | W.PN.UPDATE ---
Update Note
Progress Note Update
This patient presents for suture removal from vicryl suture after port was removed in February. Site is otherwise well healed. No signs of infection or abscess. Suture noted at the lateral aspect of the incision removed without difficulty
== END ==
LOC: RADI 11:14
PROVIDERS: ATTENDING PHYSICIAN Physician Assistant; FAMILY PHYSICIAN Internal Medicine
DX: Z48.02 Encounter for removal of sutures (principal)

== ENCOUNTER 2025-04-28 10:21 | Outpatient (RCR) | payer BC, SELFPAY | END 2025-04-28 23:59 | disposition home or self-care (01) | LOC: RPT 10:21 | PROVIDERS: ATTENDING PHYSICIAN Orthopaedic Surgery; FAMILY PHYSICIAN Internal Medicine | DX: Z47.1 Aftercare following joint replacement surgery (principal); Z73.6 Limitation of activities due to disability; R26.2 Difficulty in walking, not elsewhere classified; M62.81 Muscle weakness (generalized); M25.552 Pain in left hip; R26.89 Other abnormalities of gait and mobility; Z96.642 Presence of left artificial hip joint | CPT/HCPCS: 97010; 97110; 97116; 97140; 97162 ==

== ENCOUNTER 2025-05-24 10:14 | Outpatient (RCR) | payer BC, SELFPAY | END 2025-05-24 23:59 | disposition home or self-care (01) | LOC: RPT 10:14 | PROVIDERS: ATTENDING PHYSICIAN Orthopaedic Surgery; FAMILY PHYSICIAN Internal Medicine | DX: Z47.1 Aftercare following joint replacement surgery (principal); Z73.6 Limitation of activities due to disability; R26.2 Difficulty in walking, not elsewhere classified; M62.81 Muscle weakness (generalized); M25.552 Pain in left hip; R26.89 Other abnormalities of gait and mobility; Z96.642 Presence of left artificial hip joint | CPT/HCPCS: 97010; 97110; 97112; 97116; 97140; 97530 ==

== ENCOUNTER → 2025-06-13 09:13 | Outpatient (REF) | payer BC, SELFPAY ==
[2025-06-13 09:45] LABS: Hematocrit 37.9 % (37.0-47.0); Hemoglobin 12.5 g/dL (12.0-16.0); Mean Corp Hgb Conc. 33.0 g/dL (33.0-37.0); Mean Corpuscular Volume 92.4 fL (81.0-99.0); Platelet Count 345 10^3/uL (130-400); Red Cell Dist. Width 12.0 % (11.5-14.5)
[2025-06-13 11:25] LABS: ALT (SGPT) 18 U/L (0-35); AST (SGOT) 22 U/L (14-36); Albumin 4.7 g/dl (3.5-5.0); Alkaline Phosphatase 102 U/L (38-126); Blood Urea Nitrogen 22 mg/dl (7-17); Calcium 9.7 mg/dl (8.4-10.2); Carbon Dioxide 25 mmol/L (22-30); Chloride 105 mmol/L (98-107); Glucose 104 mg/dl (70-99); Potassium 4.1 mmol/L (3.5-5.1); Sodium 140 mmol/L (135-145); Total Protein 7.7 g/dl (6.3-8.2); eGFR > 60.00
[2025-06-13 14:29] LABS: CA 125 < 5.5 U/mL (0-35)
[2025-06-19 08:00] LABS: Total Testosterone,Female/Chil 4 ng/dL (5-32)
== END ==
LOC: OIDL 09:13
PROVIDERS: ATTENDING PHYSICIAN Obstetrics & Gynecology Gynecologic Oncology; FAMILY PHYSICIAN Internal Medicine
DX: C56.2 Malignant neoplasm of left ovary (principal); R97.8 Other abnormal tumor markers; N30.80 Other cystitis without hematuria; Z71.9 Counseling, unspecified; Z12.31 Encounter for screening mammogram for malignant neoplasm of breast
CPT/HCPCS: 36415; 80053; 84270; 84402; 84403; 85025; 86304

== ENCOUNTER 2025-06-29 06:48 | Outpatient (RCR) | payer BC, SELFPAY | END 2025-06-29 23:59 | disposition home or self-care (01) | LOC: RPT 06:48 | PROVIDERS: ATTENDING PHYSICIAN Orthopaedic Surgery; FAMILY PHYSICIAN Internal Medicine | DX: Z47.1 Aftercare following joint replacement surgery (principal); Z96.642 Presence of left artificial hip joint; Z73.6 Limitation of activities due to disability; R26.2 Difficulty in walking, not elsewhere classified; M62.81 Muscle weakness (generalized); M25.552 Pain in left hip; R26.89 Other abnormalities of gait and mobility | CPT/HCPCS: 97010; 97110; 97112 ==

== ENCOUNTER 2025-07-26 14:14 | Outpatient (RCR) | payer BC, SELFPAY | END 2025-07-26 23:59 | disposition home or self-care (01) | LOC: RPT 14:14 | PROVIDERS: ATTENDING PHYSICIAN Orthopaedic Surgery; FAMILY PHYSICIAN Internal Medicine | DX: Z47.1 Aftercare following joint replacement surgery (principal); Z96.642 Presence of left artificial hip joint; Z73.6 Limitation of activities due to disability; R26.2 Difficulty in walking, not elsewhere classified; M62.81 Muscle weakness (generalized); M25.552 Pain in left hip; R26.89 Other abnormalities of gait and mobility | CPT/HCPCS: 97010; 97110; 97112 ==

== ENCOUNTER → 2025-10-16 14:08 | Outpatient (REF) | payer BC, SELFPAY ==
[2025-10-16 14:27] LABS: Hematocrit 36.7 % (37.0-47.0); Hemoglobin 12.3 g/dL (12.0-16.0); Mean Corp Hgb Conc. 33.5 g/dL (33.0-37.0); Mean Corpuscular Volume 91.1 fL (81.0-99.0); Platelet Count 303 10^3/uL (130-400); Red Cell Dist. Width 12.7 % (11.5-14.5)
[2025-10-16 15:21] LABS: ALT (SGPT) 21 U/L (0-35); AST (SGOT) 24 U/L (14-36); Albumin 4.7 g/dl (3.5-5.0); Alkaline Phosphatase 90 U/L (38-126); Blood Urea Nitrogen 16 mg/dl (7-17); Calcium 9.5 mg/dl (8.4-10.2); Carbon Dioxide 31 mmol/L (22-30); Chloride 102 mmol/L (98-107); Glucose 89 mg/dl (70-99); Potassium 3.8 mmol/L (3.5-5.1); Sodium 139 mmol/L (135-145); Total Protein 7.4 g/dl (6.3-8.2); eGFR > 60.00
[2025-10-16 20:03] LABS: CA 125 < 5.5 U/mL (0-35)
== END ==
LOC: OIDL 14:08
PROVIDERS: ATTENDING PHYSICIAN Physician Assistant Surgical; FAMILY PHYSICIAN Internal Medicine
DX: R97.8 Other abnormal tumor markers (principal); N30.80 Other cystitis without hematuria; C56.2 Malignant neoplasm of left ovary; Z71.9 Counseling, unspecified; Z12.31 Encounter for screening mammogram for malignant neoplasm of breast; R10.20 Pelvic and perineal pain unspecified side
CPT/HCPCS: 36415; 80053; 85025; 86304

== ENCOUNTER → 2025-10-17 07:19 | Outpatient (REF) | payer BC, SELFPAY | LOC: RAD 07:19 | PROVIDERS: ATTENDING PHYSICIAN Physician Assistant Surgical; FAMILY PHYSICIAN Internal Medicine | DX: R97.8 Other abnormal tumor markers (principal); N30.80 Other cystitis without hematuria; C56.2 Malignant neoplasm of left ovary; Z12.31 Encounter for screening mammogram for malignant neoplasm of breast; Z71.9 Counseling, unspecified; R10.20 Pelvic and perineal pain unspecified side | CPT/HCPCS: 71260; 74177; Q9967 ==

== ENCOUNTER → 2025-10-30 09:51 | Outpatient (REF) | payer BC, SELFPAY ==
[2025-10-30 10:54] LABS: Hematocrit 40.1 % (37.0-47.0); Hemoglobin 13.4 g/dL (12.0-16.0); Mean Corp Hgb Conc. 33.4 g/dL (33.0-37.0); Mean Corpuscular Volume 92.0 fL (81.0-99.0); Nucleated Red Blood Cells % 0 %; Platelet Count 322 10^3/uL (130-400); Red Cell Dist. Width 12.8 % (11.5-14.5)
[2025-10-30 11:55] LABS: ALT (SGPT) 23 U/L (0-35); AST (SGOT) 26 U/L (14-36); Albumin 4.8 g/dl (3.5-5.0); Alkaline Phosphatase 100 U/L (38-126); Blood Urea Nitrogen 16 mg/dl (7-17); Calcium 10.1 mg/dl (8.4-10.2); Carbon Dioxide 29 mmol/L (22-30); Chloride 103 mmol/L (98-107); Glucose 92 mg/dl (70-99); Potassium 5.0 mmol/L (3.5-5.1); Sodium 139 mmol/L (135-145); Total Protein 7.9 g/dl (6.3-8.2); eGFR > 60.00
== END ==
LOC: REG 09:51
PROVIDERS: ATTENDING PHYSICIAN Internal Medicine; REFERRING PHYSICIAN Internal Medicine Hematology & Oncology
DX: K52.9 Noninfective gastroenteritis and colitis, unspecified (principal); R10.32 Left lower quadrant pain; C56.9 Malignant neoplasm of unspecified ovary
CPT/HCPCS: 36415; 80053; 85025; 85652

== ENCOUNTER → 2025-10-31 10:55 | Outpatient (REF) | payer BC, SELFPAY | LOC: REG 10:55 | PROVIDERS: ATTENDING PHYSICIAN Internal Medicine; REFERRING PHYSICIAN Internal Medicine Hematology & Oncology | DX: K52.9 Noninfective gastroenteritis and colitis, unspecified (principal); R10.32 Left lower quadrant pain; C56.9 Malignant neoplasm of unspecified ovary | CPT/HCPCS: 83993; 87045; 87046; 87427; 89055 ==